=== PATIENT | female | born 1985 | race African-American/Black ===

== ENCOUNTER 2020-10-03 00:24 | Emergency (ER) | payer SELFPAY ==
[2020-10-03 00:54] LABS: Basophils % 1.1 % (0-1.3); Hematocrit 38.1 % (36.0-45.0); Lymphocytes % 36.9 % (15.3-44.8); MPV 9.6 fL (7.6-11.3); RBC Red Blood Cell Count 3.88 M/uL (3.86-4.86)
[2020-10-03 00:57] LABS: Protime INR 0.91
[2020-10-03] MEDS ORDERED: DIPHENHYDRAMINE 50 MG/ML VIAL ONE (01:01)
[2020-10-03] MEDS ORDERED: HALOPERIDOL LACT 5 MG/ML INJ ONE (01:01)
[2020-10-03] MEDS ORDERED: NA CHLORIDE 0.9% 1,000 ML ONE (01:01)
[2020-10-03] MEDS ORDERED: LORazepam 2 MG/ML VIAL ONE (01:01)
[2020-10-03 01:32] LABS: ALT/SGPT 29 U/L (12-78); AST/SGOT 28 U/L (15-37); Albumin 3.5 g/dL (3.4-5.0); Alkaline Phosphatase 116 U/L (45-117); BUN Blood Urea Nitrogen 10 mg/dL (7-18); Bicarbonate 22 mmol/L (21-32); Bilirubin Direct < 0.1 mg/dL (0-0.2); Bilirubin Total 0.2 mg/dL (0.2-1.0); Creatine Phosphokinase 252 U/L (26-192); Glucose Level 163 mg/dL (74-106); Potassium 3.6 mmol/L (3.5-5.1); Protein, Total 7.2 g/dL (6.4-8.2); Sodium Level 140 mmol/L (136-145); Troponin (Emerg Dept Use Only) < 0.02 ng/mL (0.0-0.045)
[2020-10-03 01:43] LABS: Urine Blood TRACE (NEG); Urine Glucose NEGATIVE (NEG); Urine Protein 1+ (NEG)
[2020-10-03 01:48] LABS: Barbiturates NEGATIVE (NEGATIVE); Benzodiazepines NEGATIVE (NEGATIVE); Cocaine NEGATIVE (NEGATIVE); METHAMPHETAM NEGATIVE (NEGATIVE); Methadone NEGATIVE (NEGATIVE); Opiates NEGATIVE (NEGATIVE); Phencyclidine NEGATIVE (NEGATIVE); THC Cannibis POSITIVE (NEGATIVE)
--- NOTE | 2020-10-03 06:03 | ER ---
Nurse's Notes [facility] Name: Laly Guajardo Age: 34 yrs Sex: Female : 1985 Arrival Date: 10/03/2020 Time: 00:20 Bed 3 Private MD: Diagnosis: Altered Metal Status-Resolved;Marijuana Abuse;UTI Presentation: 10/03 00:20 Chief complaint: Chief complaint: EMS states: she was at home when she started to be mg2 combative. given ketamine 250 mgx2 IM enroute. 00:20 Coronavirus screen: Client denies travel out of the [place] in the last 14 days. Ebola mg2 Screen: No symptoms or risks identified at this time. 00:20 Method Of Arrival: EMS: [facility] mg2 01:03 Initial Sepsis Screen: Does the patient meet any 2 criteria? No. Patient's initial mg2 sepsis screen is negative. Does the patient have a suspected source of infection? No. Patient's initial sepsis screen is negative. Risk Assessment: Do you want to hurt yourself or someone else? Patient reports no desire to harm self or others. Onset of symptoms was October 03, 2020. 01:03 Acuity: TYRA 2 mg2 Historical: - Allergies: 02:22 PENICILLINS; lp1 - Home Meds: 01:03 Unable to obtain [Active]; mg2 - PMHx: 01:03 Unable to obtain; mg2 - PSHx: 01:03 Unable to obtain; mg2 - Immunization history:: Flu vaccine status is unknown. - Social history:: Smoking status: unknown. Screenin:05 Abuse screen: Denies threats or abuse. Denies injuries from another. Nutritional mg2 screening: No deficits noted. Tuberculosis screening: No symptoms or risk factors identified. Fall Risk Secondary diagnosis (15 points) combative. IV access (20 points). Assessment: 00:35 Reassessment: applied four point restraint to patient,. still combative. provider mg2 informed and orders made. 01:30 Reassessment: Patient awake, oriented to time and place; Nurse and tech with patient to lp1 transport to [address]; cooperative at this time; Patient states "I want to go home", "What happened to me?". 01:40 General: Appears in no apparent distress. Behavior is cooperative. Pain: Complains of lp1 pain in dorsal aspect of proximal phalanx of left ring finger. Neuro: Level of Consciousness is awake, alert, obeys commands, Oriented to person, place, time, situation. Cardiovascular: Patient's skin is warm and dry. Respiratory: Airway is patent Trachea midline Respiratory effort is even, Respiratory pattern is regular, Breath sounds are clear bilaterally. GI: Abdomen is obese. : No deficits noted. EENT: No deficits noted. Derm: abrasions to left palmar aspect of hand. Musculoskeletal: Range of motion: intact in all extremities. 02:00 Reassessment: Patient appears in no apparent distress at this time. Patient noted to lp1 have swelling to left ring finger, gold ring in place; patient reports pain to site. 02:30 Reassessment: patient resting, eyes closed, respirations even, unlabored. lp1 04:06 Reassessment: Patient resting, eyes closed, respirations even; During routine vitals, lp1 patient states "I want to go home", patient informed of significant other, Ha, went home; Patient back to sleep, no further interventions needed. 05:56 Reassessment: Verbal order for Cipro [address] Shipley. lp1 05:57 Reassessment: Called patient's significant other, Ha at [phone]; Will come to 1 burr picker patient for discharge. 06:30 Reassessment: Patient appears in no apparent distress at this time. Patient woken up at lp1 this time, alert and oriented x3, reports smoking synthetic marijuana; complaint of finger swelling from rings to left ring finger and right ring finger; Dr. Shipley at bedside to use ring cutter; rings removed, skin intact to sites. 06:45 Reassessment: Patient's significant other, Ha at bedside for ride home; Patient able lp1 to ambulate independently, steady gait noted. Vital Signs: 00:20 BP 163 / 101; Pulse 120; Resp 20; Pulse Ox 100% on Non-rebreather mask; mg2 01:15 BP 142 / 83; Pulse 106; Resp 20; Pulse Ox 98% on 2 lpm NC; Weight 99.79 kg; lp1 01:45 BP 130 / 84; Pulse 100; Resp 18; Pulse Ox 94% on R/A; lp1 02:00 BP 139 / 82; Pulse 99; Resp 21; Pulse Ox 95% on R/A; lp1 04:00 BP 135 / 84; Pulse 86; Resp 21; Pulse Ox 95% on R/A; lp1 05:00 BP 132 / 81; Pulse 86; Resp 18; Temp 97.2(TE); Pulse Ox 99% on R/A; lp1 06:00 BP 111 / 89; Pulse 88; Resp 16; Pulse Ox 97% on R/A; lp1 ED Course: 00:20 Patient arrived in ED. sg 00:22 Emir Shipley MD is Attending Physician. 7 00:30 Inserted saline lock: 20 gauge in left forearm, using aseptic technique. by Bentley, ED mg2 TEch. 00:35 Inserted saline lock: 20 gauge in right hand, using aseptic technique. mg2 01:03 Triage completed. mg2 01:03 No provider procedures requiring assistance completed. mg2 01:05 Patient has correct armband on for positive identification. Placed in gown. Side rails mg2 up X2. 01:05 Arm band placed on. mg2 01:12 Urine Drug Screen Sent. ds4 01:44 Chest Single View XRAY In Process Unspecified. EDMS 01:51 Loraine Rajan, RN is Primary Nurse. lp1 01:58 CT Head Brain wo Cont In Process Unspecified. EDMS 06:35 IV discontinued, No redness/swelling at site. Pressure dressing applied. lp1 Restraints: 00:30 Violent/Self Destructive Restraint: Order: obtained. Initiated October 03, 2020 at lp1 00:30 Staff present during the Initiation of Restraint: Loraine Rajan RN; Sina Clark RN, Bentley, cloth cutter; Dr. Shipley. Observed actions/behavior: destructive, confusion/disorientation, difficulty remembering or follow instructions, impaired decision making, repeated attempts to get up from bed/chair without assistance. unable to follow instructions, Less restrictive alternatives attempted: decreased environmental stimuli, 1:1 patient care, placed near Nurse station, reoriented to location, covered lines/tubes, Alternative interventions: Ineffective. Clinical justification for use: Violent/self destructing behavior impacts therapeutic environment. Poses a serious danger to physical safety of self \\T\\ others. Monitoring: Mental status: confused. Cognition: poor judgement, poor attention/concentration, unable to follow commands, Circulation: Within defined parameters (based on Cardiovascular assessment). Skin integrity: Within defined parameters (based on Integumentary assessment) Restraint status: Side rails up x 4 Started. Soft wrist restraint (Right) Soft wrist restraint (Left) Soft ankle restraint (Right) Soft ankle restraint (Left). 00:45 Violent/Self Destructive Restraint: Observed actions/behavior: lp1 confusion/disorientation, difficulty remembering or follow instructions, impaired decision making, repeated attempts to get up from bed/chair without assistance. Monitoring: Mental status: confused. Cognition: poor judgement, poor attention/concentration, unable to follow commands, Circulation: Within defined parameters (based on Cardiovascular assessment). Skin integrity: Within defined parameters (based on Integumentary assessment) Restraint status: Soft wrist restraint (Right) Continued. Soft wrist restraint (Left) Continued. Soft ankle restraint (Right) Continued. Soft ankle restraint (Left) Continued. 01:00 Violent/Self Destructive Restraint: Monitoring: Mental status: confused. Cognition: lp1 poor judgement, poor attention/concentration, unable to follow commands, Circulation: Within defined parameters (based on Cardiovascular assessment). Skin integrity: Within defined parameters (based on Integumentary assessment) Restraint status: Soft wrist restraint (Right) Soft wrist restraint (Left) Soft ankle restraint (Right) Soft ankle restraint (Left). 01:15 Violent/Self Destructive Restraint: Observed actions/behavior: lp1 confusion/disorientation, difficulty remembering or follow instructions, impaired decision making, repeated attempts to get up from bed/chair without assistance. unable to follow instructions, Monitoring: Mental status: confused. Cognition: poor judgement, poor attention/concentration, unable to follow commands, Circulation: Within defined parameters (based on Cardiovascular assessment). Skin integrity: Within defined parameters (based on Integumentary assessment) Restraint status: Soft wrist restraint (Right) Soft wrist restraint (Left) Soft ankle restraint (Right) Soft ankle restraint (Left). 01:30 Violent/Self Destructive Restraint: Less restrictive alternatives attempted: decreased lp1 environmental stimuli, placed near Nurse station, reoriented to location, covered lines/tubes, eliminated unnecessary lines/tubes, Alternative interventions: Effective. Restraint status: Soft wrist restraint (Right) Discontinued. Soft wrist restraint (Left) Discontinued. Soft ankle restraint (Right) Discontinued. Soft ankle restraint (Left) Discontinued. Readiness for Discontinue: Release criteria met. No longer exhibiting violent or self destructive behavior. Alt interventions effective. Administered Medications: 00:59 Drug: Ativan 2 mg Route: IM; Site: right deltoid; mg2 02:00 Follow up: Response: No adverse reaction lp1 01:00 Drug: NS 0.9% 1000 ml Route: IV; Rate: 1000 ml; Site: left forearm; mg2 02:30 Follow up: IV Status: Completed infusion; IV Intake: 1000ml lp1 01:00 Drug: HALdol (as decanoate) 5 mg Route: IM; Site: left deltoid; mg2 02:00 Follow up: Response: No adverse reaction lp1 01:00 Drug: Benadryl 50 mg Route: IM; Site: right deltoid; mg2 05:54 Follow up: Response: No adverse reaction lp1 06:47 Drug: Cipro 500 mg Route: PO; mg2 06:47 Follow up: Response: No adverse reaction; Medication administered at discharge. mg2 Intake: 02:30 IV: 1000ml; Total: 1000ml. lp1 Outcome: 06:02 Discharge ordered by . [facility] 06:50 Discharged to home ambulatory, with significant other. lp1 06:50 Condition: good 06:50 Discharge instructions given to patient, Instructed on discharge instructions, follow up and referral plans. medication usage, Demonstrated understanding of instructions, follow-up care, medications, Prescriptions given X 1. 06:56 Patient left the ED. lp1 Signatures: Dispatcher [employer] EDMS Donnie Rogers RN RN Loraine Rajan RN RN 1 Bentley Ambrosio 4 Sina Clark RN RN mg2 Emir Shipley MD MD 7 Corrections: (The following items were deleted from the chart) 01:03 01:00 Chief complaint: mg2 mg2 01:56 01:30 Reassessment: Patient awake, oriented to time and place; Nurse and tech with lp1 patient to transport to ID lp1 02:21 01:15 BP 142 / 83; Pulse 106bpm; Resp 20bpm; Pulse Ox 98% 2 lpm Nasal Cannula; lp1 lp1 02:27 02:23 Violent/Self Destructive Restraint: Order: obtained. Initiated October 03, 2020 lp1 at 00:30 Staff present during the Initiation of Restraint: Loraine Rajan RN; Sina Clark RN, Bentley, cloth cutter; Dr. Shipley. Observed actions/behavior: lp1 07:13 05:00 BP 132 / 81; Pulse 86bpm; Resp 18bpm; Pulse Ox 99% RA; lp1 lp1
--- NOTE | 2020-10-03 06:03 | EDPHYS ---
Physician Documentation [facility] Name: Laly Guajardo Age: 34 yrs Sex: Female : 1985 Arrival Date: 10/03/2020 Time: 00:20 Bed 3 Private MD: ED Physician Emir Shipley HPI: 10/03 01:29 This 34 yrs old Black Female presents to ER via EMS with complaints of Drug Abuse. 7 01:29 The patient presents with agitation, combative. Onset: The symptoms/episode mh7 began/occurred today. Possible causes: drug use, possibly synthetic marijuana. Associated signs and symptoms: Pertinent positives: agitation, combativeness. Current symptoms: In the emergency department the patient's symptoms have improved, moderately. Per EMS family called due to patient being agitated and combative. They reported that she has a history of drug abuse with synthetic marijuana. EMS gave patient Ketamine IM.. Historical: - Allergies: 02:22 PENICILLINS; lp1 - Home Meds: :03 Unable to obtain [Active]; mg2 - PMHx: :03 Unable to obtain; mg2 - PSHx: 01:03 Unable to obtain; mg2 - Immunization history:: Flu vaccine status is unknown. - Social history:: Smoking status: unknown. ROS: :29 Unable to obtain ROS due to altered mental status. mh7 Exam: 01:29 Head/Face: Normocephalic, atraumatic. Eyes: Pupils equal round and reactive to light, mh7 extra-ocular motions intact. Lids and lashes normal. Conjunctiva and sclera are non-icteric and not injected. Cornea within normal limits. Periorbital areas with no swelling, redness, or edema. Neck: Trachea midline, no thyromegaly or masses palpated, and no cervical lymphadenopathy. Supple, full range of motion without nuchal rigidity, or vertebral point tenderness. No Meningismus. Chest/axilla: Normal chest wall appearance and motion. Nontender with no deformity. No lesions are appreciated. 01:29 Respiratory: Lungs have equal breath sounds bilaterally, clear to auscultation and percussion. No rales, rhonchi or wheezes noted. No increased work of breathing, no retractions or nasal flaring. Abdomen/GI: Soft, non-tender, with normal bowel sounds. No distension or tympany. No guarding or rebound. No evidence of tenderness throughout. Back: No spinal tenderness. No costovertebral tenderness. Full range of motion. Skin: Warm, dry with normal turgor. Normal color with no rashes, no lesions, and no evidence of cellulitis. MS/ Extremity: Pulses equal, no cyanosis. Neurovascular intact. Full, normal range of motion. 01:29 Constitutional: The patient appears in no acute distress, alert, agitated, restless. 01:29 Cardiovascular: Rate: tachycardic, Rhythm: regular, Pulses: no pulse deficits are appreciated, Heart sounds: normal, normal S1and S2, Edema: is not appreciated, JVD: is not appreciated. 01:29 Neuro: Orientation: unable to test, the patient is medicated, Mentation: unable to test, the patient is medicated, Memory: unable to test, the patient is medicated, Cranial nerves: unable to test, the patient is medicated, Cerebellar function: unable to test, the patient is medicated, Motor: moves all fours, Sensation: unable to test, the patient is medicated, Gait: not tested. Deep tendon reflexes are normal, Babinski testing is normal, seizure activity, is not displayed by the patient, Abnormal movements: there are no abnormal movements. Vital Signs: 00:20 BP 163 / 101; Pulse 120; Resp 20; Pulse Ox 100% on Non-rebreather mask; mg2 01:15 BP 142 / 83; Pulse 106; Resp 20; Pulse Ox 98% on 2 lpm NC; Weight 99.79 kg; lp1 01:45 BP 130 / 84; Pulse 100; Resp 18; Pulse Ox 94% on R/A; lp1 02:00 BP 139 / 82; Pulse 99; Resp 21; Pulse Ox 95% on R/A; lp1 04:00 BP 135 / 84; Pulse 86; Resp 21; Pulse Ox 95% on R/A; lp1 05:00 BP 132 / 81; Pulse 86; Resp 18; Temp 97.2(TE); Pulse Ox 99% on R/A; lp1 06:00 BP 111 / 89; Pulse 88; Resp 16; Pulse Ox 97% on R/A; lp1 MDM: 05:58 Differential Diagnosis: electrolyte abnormality, alcohol intoxication, overdose, UTI, mh7 volume depletion, Substance Abuse. Data reviewed: vital signs, nurses notes, EMS record, lab test result(s), cardiac enzymes, CBC, drug level(s), electrolytes, urinalysis, urine drug screen, UPT: EKG, radiologic studies, CT scan, plain films. Data interpreted: Pulse oximetry: on room air is 97 %. Interpretation: normal. Counseling: I had a detailed discussion with the patient and/or guardian regarding: the historical points, exam findings, and any diagnostic results supporting the discharge/admit diagnosis, lab results, radiology results, the need for outpatient follow up, to return to the emergency department if symptoms worsen or persist or if there are any questions or concerns that arise at home. Response to treatment: the patient's symptoms have resolved after treatment, the patient's blood pressure is in an acceptable range, mental status has returned to baseline, the patient no longer shows bradycardia, the patient is not short of breath, the patient is not tachycardic, the patient's pain is gone, the patient's temperature has normalized. 06:02 Patient medically screened. mh7 10/03 00:35 Order name: Acetaminophen; Complete Time: 02:02 mg2 10/03 00:35 Order name: Basic Metabolic Panel; Complete Time: 02:02 mg2 10/03 00:35 Order name: CBC with Diff; Complete Time: 02:02 mg2 10/03 00:35 Order name: ETOH Level; Complete Time: 02:02 mg2 10/03 00:35 Order name: Hepatic Function; Complete Time: 02:02 mg2 10/03 00:35 Order name: PT-INR; Complete Time: 02:02 mg2 10/03 00:35 Order name: Ptt, Activated; Complete Time: 02:02 mg2 10/03 00:35 Order name: Salicylate; Complete Time: 02:02 mg2 10/03 00:35 Order name: Urine Drug Screen; Complete Time: 02:02 mg2 10/03 00:58 Order name: Creatine Phosphokinase; Complete Time: 02:02 EDMS 10/03 00:58 Order name: Troponin (Emerg Dept Use Only); Complete Time: 02:02 EDMS 10/03 01:10 Order name: Urine Dipstick--Ancillary (enter results); Complete Time: 02:02 ds4 10/03 00:35 Order name: EKG; Complete Time: 00:35 mg2 10/03 00:35 Order name: EKG - Nurse/Tech; Complete Time: 01:00 [facility] [place] 10/03 00:35 Order name: IV Saline Lock; Complete Time: 01:00 [facility] [place] 10/03 00:35 Order name: Labs collected and sent; Complete Time: 01:00 [facility] [place] 10/03 00:35 Order name: Urine Dipstick-Ancillary (obtain specimen); Complete Time: 01:00 [facility] [place] 10/03 00:44 Order name: Chest Single View XRAY [facility] 10/03 00:44 Order name: Urine Test (obtain specimen); Complete Time: 01:00 [facility] 10/03 00:44 Order name: CT Head Brain wo Cont [facility] 10/03 01:06 Order name: Restraint:Violent/Self Destructive (Adult:18yo or >); Complete Time: 01:06 [facility] [place] 10/03 01:11 Order name: Urine --Ancillary (enter results); Complete Time: 02:02 ds4 Administered Medications: 00:59 Drug: Ativan 2 mg Route: IM; Site: right deltoid; mg2 02:00 Follow up: Response: No adverse reaction lp1 01:00 Drug: NS 0.9% 1000 ml Route: IV; Rate: 1000 ml; Site: left forearm; mg2 02:30 Follow up: IV Status: Completed infusion; IV Intake: 1000ml lp1 01:00 Drug: HALdol (as decanoate) 5 mg Route: IM; Site: left deltoid; mg2 02:00 Follow up: Response: No adverse reaction lp1 01:00 Drug: Benadryl 50 mg Route: IM; Site: right deltoid; mg2 05:54 Follow up: Response: No adverse reaction lp1 06:47 Drug: Cipro 500 mg Route: PO; mg2 06:47 Follow up: Response: No adverse reaction; Medication administered at discharge. mg2 Disposition: 10/03/20 06:02 Discharged to Home. Impression: Altered Metal Status-Resolved, Marijuana Abuse, UTI. - Condition is Stable. - Discharge Instructions: Cannabis Use Disorder, Substance Use Disorder, Urinary Tract Infection, Adult, [id number]. - Prescriptions for Cipro 500 mg Oral Tablet - take 1 tablet by ORAL route every 12 hours for 7 days; 14 tablet. - Medication Reconciliation Form, Thank You Letter, Antibiotic Education, Prescription Opioid Use form. - Follow up: Private Physician; When: 1 - 2 days; Reason: Worsening of condition, Recheck today's complaints, Continuance of care, Re-evaluation by your physician. - Problem is an acute exacerbation. - Symptoms have improved. Signatures: Dispatcher [employer] EDWY Loraine Rajan RN RN lp1 Sina Clark RN RN mg2 Emir Shipley MD MD mh7 Corrections: (The following items were deleted from the chart) 00:58 00:53 TROPONIN (EMERG DEPT USE ONLY)+C.LAB.BRZ ordered. EDWY EDWY 00:58 00:53 CREATINE PHOSPHOKINASE+C.LAB.BRZ ordered. [facility] EDWY 06:56 06:02 10/03/2020 06:02 Discharged to Home. Impression: Altered Metal Status-Resolved; lp1 Marijuana Abuse; UTI. Condition is Stable. Forms are Medication Reconciliation Form, Thank You Letter, Antibiotic Education, Prescription Opioid Use. Follow up: Private Physician; When: 1 - 2 days; Reason: Worsening of condition, Recheck today's complaints, Continuance of care, Re-evaluation by your physician. Problem is an acute exacerbation. Symptoms have improved. mh7
[2020-10-03] MEDS ORDERED: CIPROFLOXACIN HCL 500 MG TAB ONE (06:15)
[2020-10-03 07:24] VITALS: BP 111/89; O2SAT 97
--- NOTE | 2020-10-03 10:52 | RAD REPORT ---
EXAM DESCRIPTION: CT - Head Brain Wo Cont - 10/03/2020 3:39 am EXAM DESCRIPTION: CT of the head without contrast CLINICAL HISTORY: AMS COMPARISON: None available TECHNIQUE: Axial CT of the head obtained from the skull apex to the skull base without contrast. FINDINGS: No acute intracranial hemorrhage identified. No mass, mass effect, shift of the midline, a bnormal extra-axial fluid collection or CT evidence of acute ischemic change identified. The ventricu lar system is unremarkable. No acute abnormalities of the supratentorial white matter, basal gangli a, cerebellum, or brainstem. The visualized paranasal sinuses and the mastoid air cells are relatively well aerated. No skull fr acture identified. Visualized orbits and globes are unremarkable. IMPRESSION: 1. No acute intracranial abnormality identified. This exam was performed according to our departmental dose-optimization program, which includes autom ated exposure control, adjustment of the mA and/or kV according to patient size and/or use of iterati ve reconstruction technique. Electronically signed by: Yuval Vásquez 10/03/2020 2:04 AM CHANNEL CEMENTER INSOLE MACHINE Due to temporary technical issues with the PACS/Fluency reporting system, reports are being signed by the in house radiologist without review as a courtesy to ensure prompt reporting. The interpreting r adiologist is fully responsible for the content of the report.
--- NOTE | 2020-10-03 11:18 | RAD REPORT ---
EXAM DESCRIPTION: RAD - Chest Single View - 10/03/2020 1:44 am CLINICAL HISTORY: AMS COMPARISON: None. FINDINGS: Single frontal radiograph view of the chest. Cardiomediastinal silhouette: Normal size and contour. Lungs: No consolidation, pneumothorax, or pleural effusion. Low lung volumes. Bones: No acute osseous abnormality. Leads overlie the chest. Upper abdomen: No abnormality identified. IMPRESSION: 1. No definite acute pneumonic process identified. Low lung volumes. Electronically signed by: Yuval Vásquez 10/03/2020 2:56 AM CRAYON PAINTER Due to temporary technical issues with the PACS/Fluency reporting system, reports are being signed by the in house radiologist without review as a courtesy to ensure prompt reporting. The interpreting r adiologist is fully responsible for the content of the report.
== END 2020-10-03 06:56 | disposition home or self-care (01) ==
LOC: ER 00:24
DX: F12.10 Cannabis abuse, uncomplicated (principal); N39.0 Urinary tract infection, site not specified; Z88.0 Allergy status to penicillin
CPT/HCPCS: 36415; 70450; 71045; 80048; 80076; 80307; 80320; 80329; 81003; 81025; 82550; 84484; 85025; 85610; 85730; 96360; 96372; 99284; J1200; J1630; J7030

== ENCOUNTER 2020-10-09 18:37 | Emergency (ER) | payer SELFPAY ==
[2020-10-09 19:20] LABS: Absolute Lymphocytes (CBC) 3.2 K/uL (0.7-4.9); Basophils % 1.8 % (0-1.3); Hematocrit 36.4 % (36.0-45.0); Lymphocytes % 35.1 % (15.3-44.8); MPV 9.7 fL (7.6-11.3); RBC Red Blood Cell Count 3.75 M/uL (3.86-4.86)
[2020-10-09 19:21] LABS: Protime INR 0.97
[2020-10-09] MEDS ORDERED: METHYLPREDNISOLONE 125 MG INJ ONE (19:29)
[2020-10-09] MEDS ORDERED: ALBUTEROL 2.5 MG/3 ML NEB SOL ONE (19:30)
[2020-10-09 19:38] LABS: ALT/SGPT 32 U/L (12-78); AST/SGOT 20 U/L (15-37); Albumin 3.8 g/dL (3.4-5.0); Alkaline Phosphatase 104 U/L (45-117); BUN Blood Urea Nitrogen 16 mg/dL (7-18); Bicarbonate 25 mmol/L (21-32); Bilirubin Direct 0.1 mg/dL (0-0.2); Bilirubin Total 0.3 mg/dL (0.2-1.0); Glucose Level 80 mg/dL (74-106); Magnesium 1.9 mg/dL (1.8-2.4); NT PRO-BNP 69 pg/mL (<125); Potassium 3.7 mmol/L (3.5-5.1); Protein, Total 7.3 g/dL (6.4-8.2); Sodium Level 140 mmol/L (136-145); Troponin (Emerg Dept Use Only) < 0.02 ng/mL (0.0-0.045)
[2020-10-09] MEDS ORDERED: DIPHENHYDRAMINE 50 MG/ML VIAL ONE (20:18)
[2020-10-09] MEDS ORDERED: KETOROLAC 30 MG/ML INJ ONE (20:19)
--- NOTE | 2020-10-09 20:28 | ER ---
Nurse's Notes [facility] Name: Laly Guajardo Age: 34 yrs Sex: Female : 1985 Arrival Date: 10/09/2020 Time: 18:40 Bed 19 Private MD: Diagnosis: Asthma;Insect bite (nonvenomous) of lower back and pelvis-buttocks Presentation: 10/09 18:48 Chief complaint: Patient states: noticed about 2 days ago that she has a "bump" on her sv butt and today she had a sudden onset of midsternal chest pain, SOB, and dizziness. Coronavirus screen: Client denies travel out of the [place] in the last 14 days. Client presents with at least one sign or symptom that may indicate coronavirus-19. Standard/surgical mask placed on the client. Provider contacted for isolation considerations. Ebola Screen: No symptoms or risks identified at this time. Initial Sepsis Screen: Does the patient meet any 2 criteria? RR > 20 per min. No. Patient's initial sepsis screen is negative. Does the patient have a suspected source of infection? No. Patient's initial sepsis screen is negative. Risk Assessment: Do you want to hurt yourself or someone else? Patient reports no desire to harm self or others. Onset of symptoms was October 07, 2020. 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 - Social history:: Smoking status: Patient reports the use of cigarette tobacco products, smokes one-half pack cigarettes per day. Screenin:00 Abuse screen: Denies threats or abuse. Nutritional screening: No deficits noted. jb4 Tuberculosis screening: No symptoms or risk factors identified. Fall Risk None identified. Assessment: 19:00 General: Appears in no apparent distress. uncomfortable, Behavior is calm, cooperative, jb4 appropriate for age. Pain: Complains of pain in chest Pain does not radiate. Pain currently is 8 out of 10 on a pain scale. Quality of pain is described as pressure. Neuro: Level of Consciousness is awake, alert, obeys commands, Oriented to person, place, time, situation. Cardiovascular: Patient's skin is warm and dry. Respiratory: Reports shortness of breath at rest Airway is patent Respiratory effort is even, unlabored, Respiratory pattern is regular, symmetrical, Breath sounds are clear bilaterally. GI: No signs and/or symptoms were reported involving the gastrointestinal system. : No signs and/or symptoms were reported regarding the genitourinary system. EENT: No signs and/or symptoms were reported regarding the EENT system. Derm: Skin is intact, Skin is dry, Skin is normal, Skin temperature is warm. Musculoskeletal: Circulation, motion, and sensation intact. Range of motion: intact in all extremities. 20:00 Reassessment: Patient appears in no apparent distress at this time. Patient and/or jb4 family updated on plan of care and expected duration. Pain level reassessed. Patient is alert, oriented x 3, equal unlabored respirations, skin warm/dry/pink. Pt denies chest pain. Patient states feeling better. 20:39 Reassessment: Patient appears in no apparent distress at this time. Patient and/or jb4 family updated on plan of care and expected duration. Pain level reassessed. Patient is alert, oriented x 3, equal unlabored respirations, skin warm/dry/pink. Vital Signs: 18:48 BP 153 / 98; Pulse 78; Resp 22; Temp 97.7; Pulse Ox 100% ; Weight 79.38 kg; Height 5 sv ft. 2 in. (157.48 cm); 20:00 BP 139 / 73; Pulse 72; Resp 18; Pulse Ox 100% on R/A; jb4 18:48 Body Mass Index 32.01 (79.38 kg, 157.48 cm) sv ED Course: 18:40 Patient arrived in ED. ds1 18:45 Sandeep Antunez NP is PHCP. pm1 18:45 Gareth Boone MD is Attending Physician. pm1 18:47 Sadie Hurtado RN is Primary Nurse. ll1 18:47 Arm band placed on Patient placed in an exam room, on a stretcher. ll1 18:50 Triage completed. sv 19:00 Patient has correct armband on for positive identification. Bed in low position. Call jb4 light in reach. Side rails up X 1. Pulse ox on. NIBP on. 19:00 Initial lab(s) drawn, by me, sent to lab. Inserted saline lock: 18 gauge in right jb4 antecubital area, using aseptic technique. Blood collected. 19:30 COVID swab sent to lab. Flu and/or RSV swab sent to lab. Strep swab sent to lab. jb4 20:38 XRAY Chest (1 view) In Process Unspecified. EDMS 20:40 No provider procedures requiring assistance completed. IV discontinued, intact, jb4 bleeding controlled, No redness/swelling at site. Pressure dressing applied. Administered Medications: 19:35 Drug: Albuterol 2.5 mg Route: Inhalation; jb4 20:00 Follow up: Response: No adverse reaction; Marked relief of symptoms jb4 19:35 Drug: SOLU-Medrol 125 mg Route: IVP; Site: right antecubital; jb4 20:00 Follow up: Response: No adverse reaction jb4 20:10 Drug: TORadol 30 mg Route: IVP; Site: right antecubital; jb4 20:30 Follow up: Response: No adverse reaction; Pain is decreased jb4 20:11 Drug: Benadryl 25 mg Route: IVP; Site: right antecubital; jb4 20:30 Follow up: Response: No adverse reaction; Pain is decreased jb4 20:30 CANCELLED (Physician Discretion): predniSONE 60 mg PO once pm1 Outcome: 20:28 Discharge ordered by MD. pm1 20:40 Discharged to home via wheelchair, with family. jb4 20:40 Condition: stable 20:40 Discharge instructions given to patient, Instructed on discharge instructions, follow up and referral plans. medication usage, Demonstrated understanding of instructions, follow-up care, medications, Prescriptions given X 3. 20:41 Patient left the ED. mw2 Addendum: 10/11/2020 16:38 Addendum: COVID-19 Result: Negative result given to RN to notify pt. Notified pt of i w negative COVID 19 swab results. Pt advised that even with a negative test result they should remain in isolation until symptom free for 3 days without medication. Pt also advised to return to the ED for worsening symptoms. Signatures: Dispatcher [employer] EDGA Josey Oneal RN RN sv Sanford, Demi ds1 Ne Tapia RN RN iw Marinas, Patrick, HAT BLOCKING MACHINE OPERATOR HAT BLOCKING MACHINE OPERATOR pm1 Dima Mcfarlane, RN RN jb4 [place] mw2 Sadie Hurtado, RN RN ll1
--- NOTE | 2020-10-09 20:28 | EDPHYS ---
Physician Documentation [facility] [place] Name: Laly Guajardo Age: 34 yrs Sex: Female : 1985 Arrival Date: 10/09/2020 Time: 18:40 Bed 19 Private MD: ED Physician Gareth Boone HPI: 10/09 19:23 This 34 yrs old Black Female presents to ER via Ambulatory with complaints of Insect pm1 Bite, Shortness Of Breath, Finger Pain. 19:23 The patient has shortness of breath at rest. pm1 19:23 Onset: The symptoms/episode began/occurred today. Duration: The symptoms are pm1 continuous. The patient's shortness of breath is aggravated by nothing, is alleviated by nothing. Associated signs and symptoms: Pertinent positives: non-productive cough, Pertinent negatives: chest pain, fever, nausea, vomiting. Severity of symptoms: in the emergency department the symptoms are worse. The patient has not experienced similar symptoms in the past. Patient is also complaining of insect bite to her left upper buttocks and abrasion to left thumb from a mash filter cloth changer. 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 - Social history:: Smoking status: Patient reports the use of cigarette tobacco products, smokes one-half pack cigarettes per day. ROS: 19:23 Constitutional: Negative for fever, chills, and weight loss, Eyes: Negative for injury, pm1 pain, redness, and discharge. 19:23 Abdomen/GI: Negative for abdominal pain, nausea, vomiting, diarrhea, and constipation, Back: Negative for injury and pain, MS/Extremity: Negative for injury and deformity. 19:23 Cardiovascular: Positive for chest pain, Negative for edema, orthopnea, palpitations. 19:23 Respiratory: Positive for cough, shortness of breath, wheezing, Negative for sputum production. 19:23 Skin: Positive for abrasion to left thumb and insect bite to left buttocks. Exam: 19:23 Constitutional: This is a well developed, well nourished patient who is awake, alert, pm1 and in no acute distress. Head/Face: Normocephalic, atraumatic. 19:23 Neck: Trachea midline, no thyromegaly or masses palpated, and no cervical lymphadenopathy. Supple, full range of motion without nuchal rigidity, or vertebral point tenderness. No Meningismus. Chest/axilla: Normal chest wall appearance and motion. Nontender with no deformity. No lesions are appreciated. Cardiovascular: Regular rate and rhythm with a normal S1 and S2. No gallops, murmurs, or rubs. Normal PMI, no JVD. No pulse deficits. Back: No spinal tenderness. No costovertebral tenderness. Full range of motion. 19:23 Respiratory: the patient does not display signs of respiratory distress, Breath sounds: wheezing: that is mild, is heard diffusely. 19:23 Skin: Appearance: normal except for affected area, abscess, not appreciated, cellulitis, is not appreciated, injury, abrasion(s), very small abrasion noted, of the palmar aspect of proximal phalanx of left thumb, sub centimeter scab to left upper buttocks without any indication of abscess or cellulitis. Vital Signs: 18:48 BP 153 / 98; Pulse 78; Resp 22; Temp 97.7; Pulse Ox 100% ; Weight 79.38 kg; Height 5 sv ft. 2 in. (157.48 cm); 20:00 BP 139 / 73; Pulse 72; Resp 18; Pulse Ox 100% on R/A; jb4 18:48 Body Mass Index 32.01 (79.38 kg, 157.48 cm) sv MDM: 18:49 Patient medically screened. pm1 20:23 Data reviewed: vital signs. Data interpreted: Pulse oximetry: on room air is 100 %. pm1 Interpretation: normal. 20:27 Counseling: I had a detailed discussion with the patient and/or guardian regarding: the pm1 historical points, exam findings, and any diagnostic results supporting the discharge/admit diagnosis, lab results, radiology results, the need for outpatient follow up, to return to the emergency department if symptoms worsen or persist or if there are any questions or concerns that arise at home. 10/09 18:56 Order name: NT PRO-BNP; Complete Time: 19:42 pm1 10/09 18:56 Order name: Basic Metabolic Panel; Complete Time: 19:42 pm1 10/09 18:56 Order name: CBC with Diff; Complete Time: 19:35 pm1 10/09 18:56 Order name: LFT's; Complete Time: 19:42 pm1 10/09 18:56 Order name: Magnesium; Complete Time: 19:42 pm1 10/09 18:56 Order name: PT-INR; Complete Time: 19:35 pm1 10/09 18:56 Order name: Troponin (emerg Dept Use Only); Complete Time: 19:42 pm1 10/09 18:56 Order name: XRAY Chest (1 view) pm1 10/09 19:15 Order name: Flu; Complete Time: 20:23 pm1 10/09 19:15 Order name: Strep; Complete Time: 20:03 pm1 10/09 19:15 Order name: COVID-19 pm1 10/09 19:53 Order name: Throat Culture EDPR 10/09 18:56 Order name: EKG; Complete Time: 18:57 pm1 10/09 18:56 Order name: Cardiac monitoring; Complete Time: 19:12 pm1 10/09 18:56 Order name: EKG - Nurse/Tech; Complete Time: 19:12 pm1 10/09 18:56 Order name: IV Saline Lock; Complete Time: 19:13 pm1 10/09 18:56 Order name: Labs collected and sent; Complete Time: 19:13 pm1 10/09 18:56 Order name: O2 Per Protocol; Complete Time: 19:13 pm1 10/09 18:56 Order name: O2 Sat Monitoring; Complete Time: 19:13 pm1 Administered Medications: 19:35 Drug: Albuterol 2.5 mg Route: Inhalation; jb4 20:00 Follow up: Response: No adverse reaction; Marked relief of symptoms jb4 19:35 Drug: SOLU-Medrol 125 mg Route: IVP; Site: right antecubital; jb4 20:00 Follow up: Response: No adverse reaction jb4 20:10 Drug: TORadol 30 mg Route: IVP; Site: right antecubital; jb4 20:30 Follow up: Response: No adverse reaction; Pain is decreased jb4 20:11 Drug: Benadryl 25 mg Route: IVP; Site: right antecubital; jb4 20:30 Follow up: Response: No adverse reaction; Pain is decreased jb4 20:30 CANCELLED (Physician Discretion): predniSONE 60 mg PO once pm1 Disposition: 10/09/20 20:28 Discharged to Home. Impression: Asthma, Insect bite (nonvenomous) of lower back and pelvis - buttocks. - Condition is Stable. - Discharge Instructions: Asthma, Adult, Insect Bite, Asthma Attack Prevention, Adult. - Prescriptions for Medrol (Carmine) 4 mg Oral Tablets, Dose Pack - take 1 tablet by ORAL route as directed - follow package instructions; 1 packet. Albuterol Sulfate 90 mcg/actuation - inhale 1-2 puff by INHALATION route every 4-6 hours; 1 Inhaler. Bactrim DS 800- 160 mg Oral Tablet - take 1 tablet by ORAL route every 12 hours for 10 days; 20 tablet. - Medication Reconciliation Form, Thank You Letter, Antibiotic Education, Prescription Opioid Use form. - Follow up: Emergency Department; When: As needed; Reason: Worsening of condition. Follow up: Private Physician; When: 2 - 3 days; Reason: Recheck today's complaints, Continuance of care, Re-evaluation by your physician. - Problem is new. - Symptoms have improved. Addendum: 10/15/2020 07:14 Co-signature as Attending Physician, Gareth Boone MD. r n Signatures: Dispatcher [employer] EDJosey Anaya RN Gareth Rand MD MD rn Marinas, Patrick, NP MITOCHONDRIAL DISORDERS COUNSELOR pm1 Dima Mcfarlane RN RN jb4 [place] mw2 Corrections: (The following items were deleted from the chart) 10/09 20:30 20:29 predniSONE 60 mg PO once ordered. pm1 pm1 20:33 20:28 10/09/2020 20:28 Discharged to Home. Impression: Asthma. Condition is Stable. pm1 Forms are Medication Reconciliation Form, Thank You Letter, Antibiotic Education, Prescription Opioid Use. Follow up: Emergency Department; When: As needed; Reason: Worsening of condition. Follow up: Private Physician; When: 2 - 3 days; Reason: Recheck today's complaints, Continuance of care, Re-evaluation by your physician. Problem is new. Symptoms have improved. pm1 20:41 20:33 10/09/2020 20:28 Discharged to Home. Impression: Asthma; Insect bite mw2 (nonvenomous) of lower back and pelvis - buttocks. Condition is Stable. Discharge Instructions: Asthma, Adult, Asthma Attack Prevention, Adult, Insect Bite. Prescriptions for Medrol (Carmine) 4 mg Oral Tablets, Dose Pack - take 1 tablet by ORAL route as directed - follow package instructions; 1 packet, Albuterol Sulfate 90 mcg/actuation - inhale 1-2 puff by INHALATION route every 4-6 hours; 1 Inhaler, Bactrim DS 800-160 mg Oral Tablet - take 1 tablet by ORAL route every 12 hours for 10 days; 20 tablet. and Forms are Medication Reconciliation Form, Thank You Letter, Antibiotic Education, Prescription Opioid Use. Follow up: Emergency Department; When: As needed; Reason: Worsening of condition. Follow up: Private Physician; When: 2 - 3 days; Reason: Recheck today's complaints, Continuance of care, Re-evaluation by your physician. Problem is new. Symptoms have improved. pm1
--- NOTE | 2020-10-09 20:43 | RAD REPORT ---
EXAM DESCRIPTION: RAD - Chest Single View - 10/09/2020 8:38 pm CLINICAL HISTORY: CHEST PAIN Chest pain. COMPARISON: Chest Single View dated 10/03/2020; CHEST PA AND LAT 2 VIEW dated 09/16/2014 FINDINGS: Portable technique limits examination quality. The lungs are grossly clear. The heart is normal in size. No displaced fractures. IMPRESSION: No acute intrathoracic process suspected.
[2020-10-10 01:48] VITALS: TEMP 97.7; O2SAT 100
[2020-10-10 01:50] VITALS: BP 139/73
== END 2020-10-09 20:41 | disposition home or self-care (01) ==
LOC: ER 18:37
DX: J45.909 Unspecified asthma, uncomplicated (principal); Z20.828 Contact with and (suspected) exposure to other viral communicable diseases; S30.860A Insect bite (nonvenomous) of lower back and pelvis, initial encounter; F17.210 Nicotine dependence, cigarettes, uncomplicated; Z88.0 Allergy status to penicillin
CPT/HCPCS: 36415; 71045; 80048; 80076; 83735; 83880; 84484; 85025; 85610; 87070; 87081; 87804; 93005; 96374; 96375; 99284; J1200; J2930; U0002

== ENCOUNTER 2020-10-27 22:29 | Emergency (ER) | payer OTHER, SELFPAY ==
--- OUTSIDE RECORDS SUMMARY | 2020-10-27 22:31 | XMS REPORT | Continuity of Care Document ---
:1985 Author Organization [facility] t Address [address] [place] [address] Care Team Providers Name Role Phone Gale Parks Attending Clinician Missy ADKINS Attending Clinician Doctor Unassigned, Name Attending Clinician Unavailable Luz Maria Harry Attending Clinician Dustin Tapia DO Attending Clinician Problems This patient has no known problems. Allergies, Adverse Reactions, Alerts This patient has no known allergies or adverse reactions. Medications This patient has no known medications. Procedures This patient has no known procedures. Encounters Start End Encounter Admission Attending Care Care Encounter Source Date/Time Date/Time Type Type Clinicians Facility Department ID 2020-10-22 2020-10-22 Emergency CHIKIS Wilson [id number] 16:02:00 20:05:00 Lakhwinder Robin [id number] [place] [id number] [place] [id number] 2019-07-29 2019-07-29 Emergency CHIKIS Louis [id number] 09:50:45 12:45:00 Quinton Robin [id number] [place] [id number] [place] [id number] 2019-07-29 2019-07-29 Orders Doctor ROSE [id number] 00:00:00 00:00:00 Only Unassigned, MOOK [id number] [place] [id number] 2019-07-27 2019-07-27 Telephone Paula [facility] [id number] 00:00:00 00:00:00 Kristina Loera [place] [id number] [facility] [id number] MATERNAL [id number] & CHILD [address] [place] [id number] 2019-07-11 2019-07-12 Emergency [facility] [id number] 23:24:47 01:29:00 Meredith Robin [id number] [place] [id number] [place] [id number] 2019-07-08 2019-07-08 Office [facility] [id number] 15:11:03 16:28:52 Visit Kristina Loera [place] [id number] [facility] [id number] MATERNAL [id number] & CHILD [address] [place] [id number] Results This patient has no known results.
--- OUTSIDE RECORDS SUMMARY | 2020-10-27 22:32 | XMS REPORT | Summary of Care ---
:1985 Author Organization [facility] - [facility] Address [address] [place] [id number] Care Team Providers Name Role Phone June Brown Primary Care Provider Reason for Referral Radiology Services (STAT) Status Reason Specialty Diagnoses / Referred By Referred To Procedures Contact Contact New Request Diagnostic Diagnoses Abdominal pain, generalized Right forearm pain [place], Radiology Procedures XR FOREARM 2 VW RIGHT XR FOREARM 2 VW LEFT [place] F, PRIVATE CHEF [address] [place] [phone] MRI/CAT Scan (STAT) Status Reason Specialty Diagnoses / Referred By Referred To Procedures Contact Contact New Request Diagnostic Diagnoses Abdominal pain, generalized [place], Radiology Procedures CT ABDOMEN PELVIS W CONTRAST [place] F, PRIVATE CHEF [address] [place] [phone] Radiology Services (STAT) Status Reason Specialty Diagnoses / Referred By Referred To Procedures Contact Contact New Request Diagnostic Diagnoses Abdominal pain, generalized [place], Radiology Procedures Chest 1 View [place] F, PRIVATE CHEF [address] [place] [phone] Reason for Visit Reason Comments Abdominal Pain Arm Pain Seizures Auth/Cert Status Reason Specialty Diagnoses / Referred By Referred To Procedures Contact Contact Emergency Medicine [facility] ergency Dept [address] [place] [address] Fax: Encounter Details Date Type Department Care Team Description 10/22/2020 Emergency ADC-Emergency [place], [place] Abdominal pain, generalized (Primary Dx); Department F, PRIVATE CHEF Right forearm pain; [address] [place] [address] Suprapubic abdominal pain; Drive [address] [place] [address] [place], [place] [phone] Allergies Active Allergy Reactions Severity Noted Date Comments Amoxicillin Unknown - See comments 05/10/2018 Hymenoptera Allergenic Extract Shortness of Breath Penicillins Swelling 04/16/2014 Penicillin Rash 05/23/2018 Metoclopramide Anxiety 04/08/2017 documented as of this encounter (statuses as of 10/22/2020) Medications Medication Sig Dispensed Refills Start Date End Date Status SERTraline 50 mg Take 50 mg by 0 Active tablet mouth daily. sulfamethoxazole-trime Take 1 tablet by 20 tablet 0 10/30/2018 Active thoprim 800-160 mg per mouth every 12 tablet (twelve) hours. ondansetron (ZOFRAN) 4 Take 1 tablet by 12 tablet 0 01/11/2019 Active mg tabletIndications: mouth every 8 Abdominal pain, (eight) hours as chronic, right upper needed for quadrant Nausea and Vomiting (N/V). cyclobenzaprine 5 mg Take 1 tablet by 30 tablet 0 06/13/2019 Active tabletIndications: mouth 3 (three) Forearm injury, right, times daily. initial encounter, Chest wall pain, Abdominal pain, chronic, right upper quadrant, Right thigh pain naproxen sodium 550 mg Take 1 tablet by 14 tablet 0 06/13/2019 Active tabletIndications: mouth 2 (two) Chest wall pain, times daily with Abdominal pain, meals. chronic, right upper quadrant, Right thigh pain traMADol (ULTRAM) 50 Take 1 tablet by 9 tablet 0 06/13/2019 Active mg tabletIndications: mouth every 8 Forearm injury, right, (eight) hours as initial encounter, needed for Pain Chest wall pain, (scale 4-6). Abdominal pain, chronic, right upper quadrant, Right thigh pain buPROPion XL Take 1 tablet by 30 tablet 0 06/16/2019 Active (WELLBUTRIN XL) 150 mg mouth daily. 24 hr tabletIndications: Other depression albuterol 90 Inhale 2 Puffs 8.5 g 1 06/16/2019 A ctive mcg/actuation every 6 (six) inhalerIndications: hours as needed Mild asthma, for Wheezing or unspecified whether Shortness of complicated, Breath. unspecified whether persistent levoFLOXacin Take 1 tablet by 5 tablet 0 10/22/2020 0 Active (LEVAQUIN) 750 mg mouth every 24 tabletIndications: (twenty-four) Pyelonephritis hours for 5 days. documented as of this encounter (statuses as of 10/22/2020) Active Problems Problem Noted Date Bipolar affective disorder 07/08/2019 Well woman exam 06/16/2019 Contraception management 06/16/2019 Obesity (BMI 30-39.9) 06/16/2019 Essential hypertension, benign 06/16/2019 Other depression 06/16/2019 Asthma 06/16/2019 Alcohol use affecting in second trimester Overview: Admits to intermittent alcohol use. FOB struggles with alcohol use. Chest pain 10/14/2015 Cocaine abuse affecting 10/05/2015 Overview: Negative UDS for cocaine on 10/14 Mild tetrahydrocannabinol (THC) abuse 10/05/2015 Overview: Positive UDS for THC on 10/14 documented as of this encounter (statuses as of 10/22/2020) Resolved Problems Problem Noted Date Resolved Date Liveborn , of [place] , born in hospital by 01/12/2016 06/16/2019 vaginal delivery ROM (rupture of membranes), premature 01/11/2016 36 weeks gestation of 01/11/2016 06/16/20 19 Macrocytic anemia 10/15/2015 06/16/2019 Overview: Vit B12 and Folate levels pending Supervision of high-risk with insufficient prenata l 10/14/2015 06/16/2019 care, second trimester History of premature delivery, currently , second 06/16/2019 trimester with abdominal pain of lower quadrant, antepartum 10/04/2015 06/16/2019 documented as of this encounter (statuses as of 10/22/2020) Social History Tobacco Use Types Packs/Day Years Used Date Current Every Day Smoker Cigarettes 2 Sta rted: 06/16/1996 Smokeless Tobacco: Never Used Alcohol Use Drinks/Week oz/Week Comments Yes 0 Standard drinks or equivalent 0.0 Alcohol Habits Answer Date Recorded How often do you have a drink containing alcohol? Not asked How many drinks containing alcohol do you have on a typical 3 or 4 06/16/2019 day when you are drinking? How often do you have six or more drinks on one occasion? No t asked Sex Assigned at Date Recorded Not on file COVID-19 Exposure Response Date Recorded In the last month, have you been in contact with No / Unsure 10/22/2020 5:07 PM ORGAN PIPE FINISHER someone who was confirmed or suspected to have Coronavirus / COVID-19? documented as of this encounter Last Filed Vital Signs Vital Sign Reading Time Taken Comments Blood Pressure 167/101 10/22/2020 8:00 PM ORGAN PIPE FINISHER Pulse 70 10/22/2020 8:00 PM ORGAN PIPE FINISHER Temperature 37.1 C (98.7 F) 10/22/2020 3:57 PM ORGAN PIPE FINISHER Respiratory Rate 20 10/22/2020 8:00 PM ORGAN PIPE FINISHER Oxygen Saturation 99% 10/22/2020 8:00 PM ORGAN PIPE FINISHER Inhaled Oxygen Concentration - - Weight 68 kg (150 lb) 10/22/2020 3:57 PM ORGAN PIPE FINISHER Height - - Body Mass Index 27.44 07/29/2019 10:00 AM CDT documented in this encounter Discharge Instructions Carlee Momin FNP - 10/22/2020 You were seen today for Chief Complaint Patient presents with Abdominal Pain Arm Pain Seizures Your ER diagnosis was ICD-10-CM ICD-9-CM 1. Abdominal pain, generalized R10.84 789.07 2. Right forearm pain M79.631 729.5 3. Suprapubic abdominal pain R10.2 789.09 4. Pyelonephritis N12 590.80 NO LIFE-THREATENING FINDINGS ON TODAY'S EXAM. YOUR PRESCRIPTIONS : Medication List ASK your doctor about these medications albuterol 90 mcg/actuation inhaler Commonly known as: VENTOLIN Inhale 2 Puffs every 6 (six) hours as needed for Wheezing or Shortness of Breath. buPROPion XL 150 mg 24 hr tablet Commonly known as: Wellbutrin XL Take 1 tablet by mouth daily. cyclobenzaprine 5 mg tablet Commonly known as: FLEXERIL Take 1 tablet by mouth 3 (three) times daily. naproxen sodium 550 mg tablet Commonly known as: ANAPROX Take 1 tablet by mouth 2 (two) times daily with meals. ondansetron 4 mg tablet Commonly known as: Zofran Take 1 tablet by mouth every 8 (eight) hours as needed for Nausea and Vomiting (N/V). SERTraline 50 mg tablet Commonly known as: ZOLOFT sulfamethoxazole-trimethoprim 800-160 mg per tablet Commonly known as: BACTRIM DS Take 1 tablet by mouth every 12 (twelve) hours. traMADoL 50 mg tablet Commonly known as: Ultram Take 1 tablet by mouth every 8 (eight) hours as needed for Pain (scale 4-6). ER precautions and follow up : 1. Return to ER if your symptoms should worsen or fail to improve within 72 hours. 2. The care provided in the emergency room was for acute problems only. 3. You should follow up with your primary care provider within 72 hours. 4. Fill and take all your medications as prescribed. 5. Make sure you are staying adequately hydrated. Busque attencion immediatamente si usted tiene los sitomas sigue, vuelve peor o si hay sitomas nuevas o para cualquiera preoccupacion incluyendo dolor del pecho, falta aire, se siente debile, mas fievre, mas dolor, nausea, vomitando, sangrando que no es normal, confusion, baja or pierdas conciencia. FOLLOW-UP RECOMMENDATIONS: RECOMMEND FOLLOW-UP WITH A PRIMARY CARE PROVIDER OR SPECIALIST IN 2-5 DAYS, ESPECIALLY IF NO IMPROVEMENT IN SYMPTOMS. MAY FOLLOW-UP WITH A PROVIDER OF YOUR CHOICE, SUCH : 1. A PHYSICIAN OF YOUR CHOICE 2. [facility], . LOCATIONS IN [facility]. [facility], [address] [place] [address]; [phone] OR, IF YOU WISH TO FOLLOW-UP WITHIN THE [facility], MAY TRY THESE OPTIONS (CLINIC APPOINTMENTS AVAILABLE ON [id number] BASIS): 1. SCHEDULE AN APPOINTMENT ONLINE AT [email or web address] 2. OR CALL THE [facility] AT OR 3. OR CALL YOUR [facility] PHYSICIAN'S OFFICE DIRECTLY IF YOU ARE ALREADY AN ESTABLISHED [facility] PATIENT. documented in this encounter ED Notes Christa Stahl RN - 10/22/2020 3:50 PM CST34 year old female coming to the ER for generalized Abdominal pain. Patient reports having increase bathroom use and having frequent bowel movements. Patent reports having right arm numbness with pain since her visit at [facility] 10/09/2020 . Reports having increase seizure activity since her visit at [facility]. Patient is concerned about her health and wants a second opinion. documented in this encounter Miscellaneous Notes ED Nurse Note - Magali Christian RN - 10/22/2020 8:03 PM CSTPt given printed and verbal discharge instructions regarding Abdominal pain, Right forearm pain, Suprapubic abdominal pain, pyelonephritis encouraged hydration, Prescriptions provided Levaquin Discussed ibuprofen and to take with food to avoid GI distress. Discussed antibiotic therapy and to take until all completed unless adverse reaction occurs - if occurs, discontinue medication and follow up with pcp/seek medical attention Pt verbalized understanding of instructions, pt awake alert oriented, resp reg unlabored, skin w/d, color appropriate for race, moves all ext well,pt encouraged to follow up with pcp and or ER Advised to seek medical attention for new/prolonged/worsening of symptoms, Symptoms increase pain, any signs of infection, fever over 100.4 No adverse reaction to meds given in ER noted upon discharge PIV d'cd, dressing to site, catheter in tact. Awake, alert oriented, resp reg unlabored, skin w/d, pt leaving amb with steady gait, in no apparent distress, N PIPE FINISHER documented in this encounter Plan of Treatment Name Type Priority Associated Diagnoses Date/Ti ky EKG-12 LEAD ROUTINE HEART STATION STAT Abdominal pain, 03/2020 4:47 PM ONCE generalized [employer] PIPE FINISHER Urine Culture LAB STAT Abdominal pain, 10/22/2020 5:03 PM generalized ORGAN PIPE FINISHER [facility] STAT Suprapubic abdominal 10/22 6:07 PM AMPLIFIED ASSAY pain ORGAN PIPE FINISHER Name Type Priority Associated Diagnoses Order S chedule EKG-12 LEAD ROUTINE HEART STATION STAT Abdominal pain, ONCE for 1 ONCE generalized Occurrences sta rting 10/22/2020 unti l 10/22/2020 Urine Culture LAB TONNY Abdominal pain, TONNY for 1 generalized Occurrences sta rting 10/22/2020 unti l 10/22/2020 [facility] Routine Suprapubic abdominal ONCE for 1 AMPLIFIED ASSAY pain Occurrences starting 10/22/2020 unti l 10/22/2020 Health Maintenance Due Date Last Done Comments VARICELLA VACCINES (1 of 2 - 2-dose childhood series) 1985 PNEUMOCOCCAL 0-64 YEARS COMBINED SERIES (1 of 1 - 1990 PPSV23) Depression Screening 1996 DTaP,Tdap,and Td Vaccines (1 - Tdap) 2003 INFLUENZA VACCINE (#1) 2020 PAP SMEAR 06/16/2022 06/16/2019 documented as of this encounter Procedures Procedure Name Priority Date/Time Associated Diagnosis Comme nts CT ABDOMEN PELVIS W STAT 10/22/2020 5:59 Abdominal pain, R esults for this CONTRAST PM [employer] FINISHER generalized procedure are i n the results section. XR FOREARM 2 VW STAT 10/22/2020 5:20 Abdominal pain, Resul ts for this RIGHT PM [employer] FINISHER generalized procedure are in Right forearm pain the resul ts section. XR CHEST 1 VW STAT 10/22/2020 5:20 Abdominal pain, Results for this PM [employer]IPE FINISHER generalized procedure are i n the results section. POCT TEST TONNY 10/22/2020 5:04 Abdominal pain, R esults for this PM [employer] PIPE FINISHER generalized procedure are in Right forearm pain the resul ts section. URINALYSIS STAT 10/22/2020 5:03 Abdominal pain, Results for this PM [employer]IPE FINISHER generalized procedure are i n the results section. CBC WITH DIFF STAT 10/22/2020 5:03 Abdominal pain, Results for this PM [employer]IPE FINISHER generalized procedure are i n the results section. COMP. METABOLIC STAT 10/22/2020 5:03 Abdominal pain, Resul ts for this PANEL ([id number]) PM [employer] PIPE FINISHER generalized procedure are in the results section. TROPONIN I STAT 10/22/2020 5:03 Abdominal pain, Results for this PM [employer]IPE FINISHER generalized procedure are i n the results section. LIPASE STAT 10/22/2020 5:03 Abdominal pain, Results for this PM [employer] PIPE FINISHER generalized procedure are i n the results section. documented in this encounter Results CT ABDOMEN PELVIS W CONTRAST (10/22/2020 5:59 PM ORGAN PIPE FINISHER) Specimen Impressions Performed At PACS/VR/DOSE Cholelithiasis without CT evidence of ac ho-chunk cholecystitis. Otherwise, no acute process in the abdom en or pelvis is seen. RL: [id number] AFC: [id number] End of report 7: 39 PM Narrative Performed At This result has an attachment that is no t available. Ordering physician:CARLEE BREWER PACS/VR/DOSE CLINICAL HISTORY: Nausea, vomiting Abd pain, gastroent eritis or colitis suspected TECHNIQUE: Contrast enhanced CT images were obtained t hrough the abdomen and pelvis with IV contrast. Coronal and sagittal re formats were also obtained. ALARA (As Low As Reasonably Achievable) pr inciples was used during this examination. COMPARISON: None FINDINGS: The lung bases are clear bilaterally. The liver, spleen, pancreas, adrenal glands and kidney s are unremarkable. Cholelithiasis. The small bowel and colon are without bowel wall thick ening or dilatation. Unremarkable appendix. No free fluid or adenopathy is demonstrated in the abd omen or pelvis. No evidence of free air. The urinary bladder is unremarkable. The uterus is unr emarkable. The aortoiliac vessels are normal caliber. No acute osseous abnormality. Procedure Note [facility], Radiant Results Inft User - 2019 7:41 PM ORGAN PIPE FINISHER Ordering physician:CARLEE BREWER CLINICAL HISTORY: Nausea, vomiting Abd p ain, gastroenteritis or colitis suspected TECHNIQUE: Contrast enhanced CT images w ere obtained through the abdomen and pelvis with IV contrast. Coronal an d sagittal reformats were also obtained. ALARA (As Low As Reasonably Ac hievable) principles was used during this examination. COMPARISON: None FINDINGS: The lung bases are clear bilaterally. The liver, spleen, pancreas, adrenal gla nds and kidneys are unremarkable. Cholelithiasis. The small bowel and colon are without andi wel wall thickening or dilatation. Unremarkable appendix. No free fluid or adenopathy is demonstra clarence in the abdomen or pelvis. No evidence of free air. The urinary bladder is unremarkable. The uterus is unremarkable. The aortoiliac vessels are normal calibe r. No acute osseous abnormality. IMPRESSION Cholelithiasis without CT evidence of ac ho-chunk cholecystitis. Otherwise, no acute process in the abdom en or pelvis is seen. RL: [id number] [facility]: [id number] End of report Electronically signed by MD june Gates t 10/22/2020 7:39 PM Performing Organization Address [facility] Phone Number PACS/VR/DOSE XR FOREARM 2 VW RIGHT (10/22/2020 5:20 PM ORGAN PIPE FINISHER) Specimen Impressions Performed At PACS/VR/DOSE Soft tissue swelling with no acute bony abnormality. Narrative Performed At This result has an attachment that is no t available. EXAM: PACS/VR/DOSE XR FOREARM 2 VW RIGHT HISTORY: forearm pain COMPARISON: None FINDINGS: Imaging of the right forearm demonstrates no fracture or dislocation. Focal soft tissue fullness is seen along the volar proximal forearm. Procedure Note [facility], Radiant Results Inft User - 2019 6:05 PM ORGAN PIPE FINISHER EXAM: XR FOREARM 2 VW RIGHT HISTORY: forearm pain COMPARISON: None FINDINGS: Imaging of the right forearm demonstrate s no fracture or dislocation. Focal soft tissue fullness is seen along the v olar proximal forearm. IMPRESSION Soft tissue swelling with no acute bony abnormality. Performing Organization Address [facility] Phone Number PACS/VR/DOSE Chest 1 View (10/22/2020 5:20 PM ORGAN PIPE FINISHER) Specimen Impressions Performed At PACS/VR/DOSE No acute cardiopulmonary abnormality Preliminary Report Dictated by Resident: Agustín Gonzales I, Tj Wilson MD., have reviewed this study and agree with the above report. Narrative Performed At This result has an attachment that is no t available. XR CHEST 1 VW PACS/VR/DOSE HISTORY: 34 years-old; Female; abdominal pain. COMPARISON: Chest radiograph 10/14/2015, same day CT a bdomen pelvis FINDINGS: The lungs are clear with no focal consolidation. Ther e is no pleural effusion or pneumothorax. The cardiomediastinal silhouette is normal. No acute osseous abnormality is identified. Procedure Note [facility], Radiant Results Inft User - 2019 7:33 PM ORGAN PIPE FINISHER XR CHEST 1 VW HISTORY: 34 years-old; Female; abdominal pain. COMPARISON: Chest radiograph 10/14/2015, same day CT abdomen pelvis FINDINGS: The lungs are clear with no focal conso lidation. There is no pleural effusion or pneumothorax. The cardiomediastinal silhouette is norm al. No acute osseous abnormality is identifi ed. IMPRESSION No acute cardiopulmonary abnormality Preliminary Report Dictated by Resident: Agustín Gonzales I, Tj Wilson MD., have reviewed [facility] study and agree with the above report. Performing Organization Address [facility] Phone Number PACS/VR/DOSE POCT TEST (10/22/2020 5:04 PM ORGAN PIPE FINISHER) Pathologist Sig nature POCT PREG negative On board controls acceptable present with C Line POCT PREG LOT # [id number] POCT PREG TEST DATE Specimen Urine - URINE, CLEAN CATCH Troponin I (10/22/2020 5:03 PM ORGAN PIPE FINISHER) Pathologist Sig nature TROPONIN I <0.012 <=0.034 ng/mL [facility] Specimen Blood - VENOUS Narrative Performed At Equal or Less than 0.034 ng/ml---Normal [facility] Note: Cardiac troponin begins to rise 3-4 hours after the onset of ischemia. Repeat in 4-6 hours if the sample was drawn within 3-4 hours of the onset of the symptom and found normal. Between 0.035 and 0.120 ng/mL--- Borderline. Questionable myocardial injury or necros is Note: Serial measurement may be necessary to confirm or exclude the diagnosis of myocardial injury or necrosis; Clinical correlation (symptoms, EKGs, imaging studies, and others) required; Repeat in 4-6 hours if clinically indicated. Equal or Higher than 0.121 ng/mL---Abnormal. Myocardial Injury or Necrosis Likely Biotin has been reported to cause a negative bias, interpret results relative to patient's use of biotin. Performing Organization Address [facility] Cent[facility] Phone Number [facility] CLIA: [id number] [place] [address] LIPASE (10/22/2020 5:03 PM ORGAN PIPE FINISHER) Pathologist Sig Jule Game LIPASE 58 0 - 220 U/L [facility] Specimen Blood - VENOUS Performing Organization Address [facility] Phone Number [facility] CLIA: [id number] [place] [address] COMP. METABOLIC PANEL ([id number]) (10/22/2020 5:03 PM ORGAN PIPE FINISHER) [facility] nature NA 135 135 - 145 mmol/L [facility] K 3.8 3.5 - 5.0 mmol/L [facility] CL 101 98 - 108 mmol/L [facility] CO2 TOTAL 26 23 - 31 mmol/L [facility] AGAP 8 2 - 16 [facility] BUN 13 7 - 23 mg/dL [facility] GLUCOSE 92 70 - 110 mg/dL [facility] CREATININE 0.76 0.50 - 1.04 [facility] mg/dL [facility] TOTAL BILI 0.6 0.1 - 1.1 mg/dL [facility] CALCIUM 9.7 8.6 - 10.6 mg/dL [facility] T PROTEIN 7.0 6.3 - 8.2 g/dL [facility] ALBUMIN 4.1 3.5 - 5.0 g/dL [facility] ALK PHOS 81 34 - 122 U/L [facility] ALTv 20 5 - 35 U/L [facility] AST(SGOT) 25 13 - 40 U/L [facility] eGFR Calculation 86.6 mL/min/1.73m2 [facility] ([facility] Y eGFR Calculation 105.0 mL/min/1.73m2 [facility] () [facility] Specimen Blood - VENOUS Narrative Performed At Association of Glomerular Filtration Rate (GFR) [facility] and Staging of Kidney Disease* + + +- + | GFR (mL/min/1.73 m2) | With Kidney Damage | Without Kidney Damage + + +- + | >90 | Stage one | Normal + + +- + | 60-89 | Stage two | Decreased GFR + + +- + | 30-59 | Stage three | Stage three + + +- + | 15-29 | Stage four | Stage four + + +- + | <15 (or dialysis) | Stage five | Stage five + + +- + *Each stage assumes the associated GFR level has been in effect for at least three months. Stages 1 to 5, with or without kidney disease, indicate chronic kidney disease. Notes: Determination of stages one and two (with eGFR >59mL/min/1.73 m2) requires estimation of kidney damage for at least three months as defined by structural or functional abnormalities of the kidney, manifested by either: Pathological abnormalities or Markers of kidney damage (including abnormalities in the composition of the blood or urine or abnormalities in imaging tests). Performing Organization Address City/State/Zipcode Phone Number [facility] CLIA: [id number] [place] [address] CBC with Differential (10/22/2020 5:03 PM ORGAN PIPE FINISHER) [facility] WBC 8.19 4.30 - 11.10 [facility] 10*3/L [facility] RBC 3.74 (L) 3.93 - 5.25 [facility] 10*6/L [facility] HGB 12.4 11.6 - 15.0 [facility] g/dL [facility] HCT 36.0 35.7 - 45.2 % [facility] MCV 96.3 (H) 80.6 - 95.5 fL [facility] MCH 33.2 (H) 25.9 - 32.8 pg [facility] MCHC 34.4 31.6 - 35.1 [facility] g/dL [facility] RDW-SD 41.1 39.0 - 49.9 fL [facility] RDW-CV 11.8 (L) 12.0 - 15.5 % [facility] PLT 228 166 - 358 [facility] 10*3/L [facility] MPV 10.9 9.5 - 12.9 fL [facility] NRBC/100 WBC 0.0 0.0 - 10.0 /100 [facility] WBCs [facility] NRBC x10^3 <0.01 10*3/L [facility] GRAN MAT (NEUT) % 51.0 % [facility] IMM GRAN % 0.20 % [facility] LYMPH % 39.1 % [facility] MONO % 5.9 % [facility] EOS % 3.3 % [facility] BASO % 0.5 % [facility] HOSPITAL LABORATORY GRAN MAT x10^3(ANC) 4.18 1.88 - 7.09 [facility] 10*3/uL HOSPITAL LABORATORY IMM GRAN x10^3 <0.03 0.00 - 0.06 [facility] 10*3/uL HOSPITAL LABORATORY LYMPH x10^3 3.20 1.32 - 3.29 [facility] 10*3/uL HOSPITAL LABORATORY MONO x10^3 0.48 0.33 - 0.92 [facility] 10*3/uL HOSPITAL LABORATORY EOS x10^3 0.27 0.03 - 0.39 [facility] 10*3/uL HOSPITAL LABORATORY BASO x10^3 0.04 0.01 - 0.07 [facility] 10*3/uL HOSPITAL LABORATORY Specimen Blood - VENOUS Performing Organization Address [facility]/Zipcode Phone Number [facility] CLIA: [id number] [place], [place] [id number] LABORATORY [address] Urinalysis (10/22/2020 5:03 PM ORGAN PIPE FINISHER) Pathologist Sig nature APPEARANCE Hazy (A) Clear [facility] COLOR Yellow Yellow [facility] PH 5.0 4.8 - 8.0 [facility] SP GRAVITY 1.025 1.003 - 1.030 [facility] GLU U QUAL Normal Normal [facility] BLOOD Negative Negative [facility] KETONES Negative Negative [facility] PROTEIN Negative Negative [facility] UROBILIN Normal Normal [facility] BILIRUBIN Negative Negative [facility] NITRITE Positive (A) Negative [facility] LEUK MARCUS 250/uL (A) Negative [facility] RBC/HPF 3 0 - 3 HPF [facility] WBC/HPF 35 (H) 0 - 5 HPF [facility] BACTERIA Few (A) Negative [facility] MUCOUS Marked (A) Negative LPF [facility] SQ EPITH 7 HPF [facility] Specimen Urine - URINE, CLEAN CATCH Performing Organization Address [facility]/Zipcode Phone Number [facility] CLIA: [id number] [place] [address] documented in this encounter Visit Diagnoses Diagnosis Abdominal pain, generalized - Primary Right forearm pain Pain in limb Suprapubic abdominal pain Abdominal pain, other specified site Pyelonephritis Pyelonephritis, unspecified documented in this encounter Administered Medications Medication Order MAR Action Action Date Dose Rate Site iohexol (OMNIPAQUE 350 BULK-150 Given 10/22/2020 5:50 PM ORGAN PIPE FINISHER 12 0 mL mL) injection 120 mL 120 mL, Intravenous, ONCE, 1 dose, 10/22/20 at 1800, Routine levoFLOXacin in D5W (LEVAQUIN) 750 mg/150 mL Given 03/2020 6:07 PM ORGAN PIPE FINISHER 750 mg Piggyback 750 mg 750 mg, IV Piggyback, ONCE, 1 dose, 10/22/20 at 1845, 150 mL, Reason for Anti-Infective: Documented Infection, Documented Infection Site: Urine, Duration of Therapy: 7 days maalox:diphenhydrAMINE:lidocaine 2 % viscous Given 03/2020 5:03 PM ORGAN PIPE FINISHER 15 mL 1:1:1 (FIRST-MOUTHWASH BLM) oral suspension 15 mL 15 mL, Oral, ONCE, 1 dose, 10/22/20 at 1700, TONNY NaCl 0.9% (NS) bolus infusion New Bag 10/22/2020 5:02 PM ORGAN PIPE FINISHER 1,000 mL 999 mL/hr 1,000 mL at 999 mL/hr, 1,000 mL, IV Infusion, ONCE, 1 dose, 10/22/20 at 1700, TONNY documented in this encounter Insurance Payer Benefit Plan / Subscriber ID Effective Phone Address [employer] Dates MEDICAID MEDICAID PENDING [id number] [place] [address] documented as of this encounter"
[2020-10-27 23:31] LABS: Absolute Lymphocytes (CBC) 3.1 K/uL (0.7-4.9); Basophils % 1.3 % (0-1.3); Hematocrit 36.5 % (36.0-45.0); Lymphocytes % 45.2 % (15.3-44.8); RBC Red Blood Cell Count 3.75 M/uL (3.86-4.86)
[2020-10-27 23:44] LABS: BUN Blood Urea Nitrogen 9 mg/dL (7-18); Bicarbonate 27 mmol/L (21-32); Glucose Level 87 mg/dL (74-106); Potassium 3.8 mmol/L (3.5-5.1); Sodium Level 140 mmol/L (136-145)
[2020-10-27] MEDS ORDERED: HYDROCODONE/APAP 5/325 MG TAB ONE (23:59)
--- NOTE | 2020-10-28 00:34 | ER ---
Nurse's Notes [facility] Name: Laly Guajardo Age: 34 yrs Sex: Female : 1985 Arrival Date: 10/27/2020 Time: 22:29 Bed 7 Private MD: Diagnosis: Urinary tract infection, site not specified;Cholelithiasis Presentation: 10/27 23:06 Chief complaint: Patient states: HX of UTI but wasn't able to get the prescription. Pt wh now C/o back pain and pain while urinating. Coronavirus screen: Client denies travel out of the [place] in the last 14 days. At this time, the client does not indicate any symptoms associated with coronavirus-19. Ebola Screen: Patient negative for fever greater than or equal to 101.5 degrees Fahrenheit, and additional compatible Ebola Virus Disease symptoms Patient denies exposure to infectious person. Initial Sepsis Screen: Does the patient meet any 2 criteria? No. Patient's initial sepsis screen is negative. Does the patient have a suspected source of infection? Yes: Dysuria/Frequency/Urgency/UTI. Risk Assessment: Do you want to hurt yourself or someone else? Patient reports no desire to harm self or others. Onset of symptoms was October 27, 2020. 23:06 Method Of Arrival: Wheelchair 23:06 Acuity: TYRA 3 wh BINGO USHER: 23:11 LMP N/A - Unknown Historical: - Allergies: 23:08 PENICILLINS; 23:08 Amoxicillin; 23:08 Reglan; wh - PMHx: 23:08 Anxiety; Depression; Seizures; Hypertension; Asthma; wh - Immunization history:: Adult Immunizations not up to date. - Social history:: Smoking status: Patient reports the use of cigarette tobacco products, smokes one-half pack cigarettes per day, Patient uses street drugs, marijuana. - Family history:: not pertinent. - Hospitalizations: : No recent hospitalization is reported. Screenin:10 Abuse screen: Denies threats or abuse. Denies injuries from another. Nutritional wh screening: No deficits noted. Tuberculosis screening: No symptoms or risk factors identified. Fall Risk None identified. Assessment: 23:08 General: Appears in no apparent distress. uncomfortable, Behavior is cooperative, wh appropriate for age. Pain: Complains of pain in right mid back and left mid back Pain radiates to suprapubic area, right lower quadrant and left lower quadrant Pain currently is 8 out of 10 on a pain scale. Pain began 2-3 days ago. Neuro: Level of Consciousness is awake, alert, obeys commands, Oriented to person, place, time, situation, Appropriate for age. Cardiovascular: Capillary refill < 3 seconds. Respiratory: Airway is patent Respiratory effort is even, unlabored, Respiratory pattern is regular, symmetrical. GI: Abdomen is round non-distended, Reports lower abdominal pain. : Reports pain with urination. EENT: No signs and/or symptoms were reported regarding the EENT system. Derm: Skin is intact, is healthy with good turgor, Skin is pink, warm \T\ dry. normal. Musculoskeletal: Circulation, motion, and sensation intact. 23:50 Reassessment: Patient appears in no apparent distress at this time. No changes from previously documented assessment. Patient and/or family updated on plan of care and expected duration. Pain level reassessed. Patient is alert, oriented x 3, equal unlabored respirations, skin warm/dry/pink. 10/28 00:59 Reassessment: Patient appears in no apparent distress at this time. Patient and/or family updated on plan of care and expected duration. Pain level reassessed. Patient is alert, oriented x 3, equal unlabored respirations, skin warm/dry/pink. Patient states feeling better. Patient states symptoms have improved. Vital Signs: 10/27 23:06 BP 145 / 102; Pulse 79; Resp 20; Temp 98; Pulse Ox 98% on R/A; Weight 72.57 kg; Height 5 ft. 2 in. (157.48 cm); Pain 06/27; 23:51 BP 121 / 85; Pulse 72; Resp 18; Pulse Ox 98% on R/A; 10/28 00:59 BP 118 / 66; Pulse 62; Resp 18; Pulse Ox 98% on R/A; 10/27 23:06 Body Mass Index 29.26 (72.57 kg, 157.48 cm) ED Course: 10/27 22:29 Patient arrived in ED. bp1 22:49 Gareth Boone MD is Attending Physician. rn 22:55 Star Phillips RN is Primary Nurse. rr5 23:07 Triage completed. 23:10 Urine collected: clean catch specimen, clear. rr5 23:11 Patient has correct armband on for positive identification. Placed in gown. Bed in low wh position. Call light in reach. Side rails up X 1. Pulse ox on. NIBP on. 23:11 Arm band placed on right wrist. 23:15 Inserted saline lock: 20 gauge in left antecubital area, using aseptic technique. Blood wh collected. 23:50 CT Stone Protocol In Process Unspecified. EDMS 10/28 01:00 Assist provider with bone marrow aspiration. IV discontinued, intact, bleeding wh controlled, No redness/swelling at site. 01:01 Primary Nurse role handed off by Star Phillips RN 01:01 Saniya Hughes is Primary Nurse. 01:02 Primary Nurse role handed off by Saniya Hughes 01:02 Saniya Hughes is Primary Nurse. Administered Medications: 10/27 23:47 Drug: Rodeo 5 mg-325 mg 1 tabs Route: PO; 12 01:00 Follow up: Response: No adverse reaction; Pain is decreased; RASS: Alert and Calm (0) 01:02 Drug: Flagyl 2 grams Route: PO; 01:03 Follow up: Response: No adverse reaction Outcome: 00:33 Discharge ordered by . rn 01:01 Discharged to home via wheelchair. 01:01 Condition: stable 01:01 Discharge instructions given to patient, Instructed on discharge instructions, follow up and referral plans. medication usage, POC Demonstrated understanding of instructions, follow-up care, medications, POC Prescriptions given X 1. 01:01 Patient left the ED. 01:03 Patient left the ED. Signatures: Dispatcher [employer] EDTN Gareth Boone MD MD rn [place], Winsy Star Phillips, RN RN rr5 Rut Teague bp1
--- NOTE | 2020-10-28 00:34 | EDPHYS ---
Physician Documentation [facility] Name: Laly Guajardo Age: 34 yrs Sex: Female : 1985 Arrival Date: 10/27/2020 Time: 22:29 Bed 7 Private MD: ED Physician Gareth Boone HPI: 10/27 23:04 This 34 yrs old Black Female presents to ER via Unassigned with complaints of Flank rn Pain, UTI. 23:04 The patient complains of pain in the left mid back and right mid back. The pain does rn not radiate. Onset: The symptoms/episode began/occurred 3 day(s) ago. Modifying factors: The symptoms are alleviated by nothing. the symptoms are aggravated by palpation/percussion. Associated signs and symptoms: Pertinent positives: dysuria, urinary frequency, Pertinent negatives: fever. Severity of pain: At its worst the pain was mild in the emergency department the pain is unchanged. The patient has experienced similar episodes in the past. The patient has been recently seen by a physician:. Reports given abx for UTI 3 days ago at another ER, did not fill prescription, now feels worse. + dysuria and bilateral flank pain. . MANAGER CLINICAL RESEARCH: 23:11 LMP N/A - Unknown wh Historical: - Allergies: 23:08 PENICILLINS; wh 23:08 Amoxicillin; 23:08 Reglan; wh - PMHx: 23:08 Anxiety; Depression; Seizures; Hypertension; Asthma; wh - Immunization history:: Adult Immunizations not up to date. - Social history:: Smoking status: Patient reports the use of cigarette tobacco products, smokes one-half pack cigarettes per day, Patient uses street drugs, marijuana. - Family history:: not pertinent. - Hospitalizations: : No recent hospitalization is reported. ROS: 23:04 Constitutional: Negative for fever, chills, and weight loss, Eyes: Negative for injury, rn pain, redness, and discharge, Cardiovascular: Negative for chest pain, palpitations, and edema, Respiratory: Negative for shortness of breath, cough, wheezing, and pleuritic chest pain, Abdomen/GI: Negative for abdominal pain, and constipation, Back: + bilateral flank pain : + dysuria MS/Extremity: Negative for injury and deformity, Skin: Negative for injury, rash, and discoloration, Neuro: Negative for seizure Exam: 23:04 Constitutional: This is a well developed, well nourished patient who is awake, alert, rn and in no acute distress. Head/Face: Normocephalic, atraumatic. Eyes: Pupils equal round and reactive to light, extra-ocular motions intact. Lids and lashes normal. Conjunctiva and sclera are non-icteric and not injected. Cornea within normal limits. Periorbital areas with no swelling, redness, or edema. ENT: MMM Cardiovascular: Regular rate and rhythm. No pulse deficits. Respiratory: Speaking full sentences. No increased work of breathing, no retractions or nasal flaring. Abdomen/GI: soft, non-tender Back: No spinal tenderness. No costovertebral tenderness. Full range of motion. MS/ Extremity: Pulses equal, no cyanosis. Neurovascular intact. Full, normal range of motion. Equal circumference. Neuro: Awake and alert, GCS 15, oriented to person, place, time, and situation. Cranial nerves II-XII grossly intact. Motor strength 5/5 in all extremities. Sensory grossly intact. Cerebellar exam normal. Normal gait. Vital Signs: 23:06 BP 145 / 102; Pulse 79; Resp 20; Temp 98; Pulse Ox 98% on R/A; Weight 72.57 kg; Height 5 ft. 2 in. (157.48 cm); Pain 8/10; 23:51 BP 121 / 85; Pulse 72; Resp 18; Pulse Ox 98% on R/A; 10/28 00:59 BP 118 / 66; Pulse 62; Resp 18; Pulse Ox 98% on R/A; 10/27 23:06 Body Mass Index 29.26 (72.57 kg, 157.48 cm) MDM: 10/27 22:49 Patient medically screened. rn 10/28 00:33 Differential diagnosis: nephrolithiasis, pyelonephritis, UTI. Data reviewed: vital rn signs, nurses notes, lab test result(s), radiologic studies, CT scan, and as a result, I will discharge patient. Counseling: I had a detailed discussion with the patient and/or guardian regarding: the historical points, exam findings, and any diagnostic results supporting the discharge/admit diagnosis, lab results, radiology results, the need for outpatient follow up, to return to the emergency department if symptoms worsen or persist or if there are any questions or concerns that arise at home. Response to treatment: the patient's symptoms have markedly improved after treatment, and as a result, I will discharge patient. Special discussion: I discussed with the patient/guardian in detail that at this point there is no indication for admission to the hospital. It is understood, however, that if the symptoms persist or worsen the patient needs to return immediately for re-evaluation. 10/27 23:04 Order name: Urine Culture rn 10/27 23:04 Order name: Urine Microscopic Only; Complete Time: 00:58 rn 10/27 23:04 Order name: CBC with Diff; Complete Time: 00:32 rn 10/27 23:04 Order name: Basic Metabolic Panel; Complete Time: 00:32 rn 10/27 23:14 Order name: Urine Dipstick--Ancillary (enter results); Complete Time: 00:58 mw2 10/27 23:14 Order name: Urine --Ancillary (enter results); Complete Time: 00:58 mw2 10/27 23:04 Order name: Urine Test (obtain specimen); Complete Time: 23:10 rn 10/27 23:04 Order name: Urine Dipstick-Ancillary (obtain specimen); Complete Time: 23:10 rn 10/27 23:04 Order name: IV Start; Complete Time: 23:11 rn 10/27 23:04 Order name: CT Stone Protocol rn Administered Medications: 10/27 23:47 Drug: Roxana 5 mg-325 mg 1 tabs Route: PO; 10/28 01:00 Follow up: Response: No adverse reaction; Pain is decreased; RASS: Alert and Calm (0) 01:02 Drug: Flagyl 2 grams Route: PO; 01:03 Follow up: Response: No adverse reaction Disposition: 10/28/20 00:33 Discharged to Home. Impression: Urinary tract infection, site not specified, Cholelithiasis. - Condition is Stable. - Discharge Instructions: Urinary Tract Infection, Adult, Cholelithiasis. - Prescriptions for Cipro 500 mg Oral Tablet - take 1 tablet by ORAL route every 12 hours for 7 days; 14 tablet. - Medication Reconciliation Form, Thank You Letter, Antibiotic Education, Prescription Opioid Use form. - Follow up: Private Physician; When: As needed; Reason: Recheck today's complaints, Re-evaluation by your physician. - Problem is new. - Symptoms have improved. Signatures: Dispatcher [employer] EDMS Gareth Boone MD MD rn Saniya Hughes Corrections: (The following items were deleted from the chart) 01: 00:33 10/28/2020 00:33 Discharged to Home. Impression: Urinary tract infection, site wh not specified; Cholelithiasis. Condition is Stable. Forms are Medication Reconciliation Form, Thank You Letter, Antibiotic Education, Prescription Opioid Use. Follow up: Private Physician; When: As needed; Reason: Recheck today's complaints, Re-evaluation by your physician. Problem is new. Symptoms have improved. rn 01:03 01:10/28/2020 00:33 Discharged to Home. Impression: Urinary tract infection, site wh not specified; Cholelithiasis. Condition is Stable. Discharge Instructions: Urinary Tract Infection, Adult, Cholelithiasis. Prescriptions for Cipro 500 mg Oral Tablet - take 1 tablet by ORAL route every 12 hours for 7 days; 14 tablet. and Forms are Medication Reconciliation Form, Thank You Letter, Antibiotic Education, Prescription Opioid Use. Follow up: Private Physician; When: As needed; Reason: Recheck today's complaints, Re-evaluation by your physician. Problem is new. Symptoms have improved. wh
[2020-10-28 00:52] LABS: Urine Blood NEGATIVE (NEG); Urine Glucose NEGATIVE (NEG); Urine Protein NEGATIVE (NEG); Urine Specific Gravity 1.025 (1.005-1.030)
[2020-10-28 00:52] LABS: Urine Bacteria <20 /HPF (<20); Urine RBC <5 /HPF (NONE SEEN); Urine Trichomonas PRESENT (NONE SEEN)
[2020-10-28] MEDS ORDERED: metroNIDAZOLE 500 MG TABLET ONE (01:16)
--- NOTE | 2020-10-28 12:01 | RAD REPORT ---
EXAM DESCRIPTION: CT - Stone Protocol - 10/28/2020 6:28 am CLINICAL HISTORY: FLANK PAIN COMPARISON: None Available. TECHNIQUE: CT of the abdomen and pelvis without IV contrast. Evaluation of the solid organs and vasc ulature is suboptimal due to lack of IV contrast. FINDINGS: Lung Bases: The visualized lung bases are clear. Bones: No destructive bone lesions identified. Abdomen: Liver: The liver has normal size and density. Gallbladder: Calcified gallstones. No definite pericholecystic inflammatory change.. Spleen, Pancreas, and Adrenal Glands: The spleen, pancreas, and adrenal glands are unremarkable. Kidneys: The kidneys have normal size without evidence of hydronephrosis. No obstructing ureteral blade culi. Vasculature: Aortoiliac atherosclerosis. IVC is unremarkable. Stomach: The stomach and duodenum have normal course. Other: No free intraperitoneal air. Trace free fluid in the pelvis may be physiologic. Pelvis: Bladder: Urinary bladder is unremarkable. Bowel: No dilated loops of large or small bowel. Appendix: Normal appendix. Pelvis: Uterus is not enlarged. IMPRESSION: 1. Cholelithiasis without other CT evidence of acute cholecystitis. 2. Trace free pelvic fluid may be physiologic. This exam was performed according to our departmental dose-optimization program, which includes autom ated exposure control, adjustment of the mA and/or kV according to patient size and/or use of iterati ve reconstruction technique. Electronically signed by: Yuval Vásquez 10/28/2020 12:04 AM CERTIFIED JUVENILE PROBATION OFFICER Due to temporary technical issues with the PACS/Fluency reporting system, reports are being signed by the in house radiologist without review as a courtesy to ensure prompt reporting. The interpreting r adiologist is fully responsible for the content of the report.
== END 2020-10-28 01:03 | disposition home or self-care (01) ==
LOC: ER 22:29
DX: N39.0 Urinary tract infection, site not specified (principal); K80.20 Calculus of gallbladder without cholecystitis without obstruction; F17.210 Nicotine dependence, cigarettes, uncomplicated; I10 Essential (primary) hypertension; Z88.0 Allergy status to penicillin; Z88.1 Allergy status to other antibiotic agents; Z88.8 Allergy status to other drugs, medicaments and biological substances
CPT/HCPCS: 36415; 74176; 76377; 80048; 81003; 81015; 81025; 85025; 87086; 87088; 99285

== ENCOUNTER 2020-10-29 22:03 | Emergency (ER) | payer OTHER, SELFPAY ==
--- OUTSIDE RECORDS SUMMARY | 2020-10-29 22:05 | XMS REPORT | Continuity of Care Document ---
:1985 Author Organization [facility] t Address [address] [place] [address] Care Team Providers Name Role Phone Gale [...] Clinicians Facility Department ID 2020-10-22 2020-10-22 Emergency Steve [facility] [id number] 16:02:00 20:05:00 Lakhwinder Robin [id number] [place] [id number] [place] [phone] [id number] 2019-07-29 2019-07-29 Emergency Missy [facility] [id number] 09:50:45 12:45:00 Quinton Robin [id number] [place] [id number] [place] [id number] [id number] 2019-07-29 2019-07-29 Orders Doctor ROSE [id number] 00:00:00 00:00:00 Only Unassigned, MOOK [id number] [place] [id number] 2019-07-27 2019-07-27 Telephone Paula [facility] [id number] 00:00:00 00:00:00 Kristina Loera REEL SYSTEM OPERATOR [id number] [facility] [id number] MATERNAL [id number] & CHILD [address] [place] [address] 2019-07-11 2019-07-12 Emergency Willie [facility] [id number] 23:24:47 01:29:00 Meredith Robin [id number] [place] [id number] [place] [id number] [id number] 2019-07-08 2019-07-08 Office [facility] [id number] 15:11:03 16:28:52 Visit Kristina Loera REEL SYSTEM OPERATOR [id number] [facility] [id number] MATERNAL [phone] & CHILD [address] [place] [address] Results This patient has no known results.
[2020-10-29 23:00] LABS: Absolute Lymphocytes (CBC) 2.9 K/uL (0.7-4.9); Basophils % 0.8 % (0-1.3); Hematocrit 34.4 % (36.0-45.0); Lymphocytes % 36.7 % (15.3-44.8); MPV 9.6 fL (7.6-11.3); RBC Red Blood Cell Count 3.56 M/uL (3.86-4.86)
[2020-10-29 23:04] LABS: Protime INR 1.01
[2020-10-29 23:20] LABS: ALT/SGPT 31 U/L (12-78); AST/SGOT 27 U/L (15-37); Albumin 3.4 g/dL (3.4-5.0); Alkaline Phosphatase 88 U/L (45-117); BUN Blood Urea Nitrogen 7 mg/dL (7-18); Bicarbonate 22 mmol/L (21-32); Bilirubin Direct < 0.1 mg/dL (0-0.2); Bilirubin Total 0.5 mg/dL (0.2-1.0); Glucose Level 85 mg/dL (74-106); Potassium 3.5 mmol/L (3.5-5.1); Protein, Total 7.1 g/dL (6.4-8.2); Sodium Level 141 mmol/L (136-145)
[2020-10-30 00:52] LABS: Urine Blood NEGATIVE (NEG); Urine Glucose NEGATIVE (NEG); Urine Protein NEGATIVE (NEG); Urine Specific Gravity 1.005 (1.005-1.030); Urine pH 5.5 (5.0-7.0)
[2020-10-30 00:52] LABS: Urine Specific Gravity 1.005 (1.005-1.030)
[2020-10-30 00:53] LABS: Barbiturates NEGATIVE (NEGATIVE); Benzodiazepines NEGATIVE (NEGATIVE); Cocaine NEGATIVE (NEGATIVE); METHAMPHETAM NEGATIVE (NEGATIVE); Methadone NEGATIVE (NEGATIVE); Opiates NEGATIVE (NEGATIVE); Phencyclidine NEGATIVE (NEGATIVE); THC Cannibis POSITIVE (NEGATIVE)
--- NOTE | 2020-10-30 01:36 | EDPHYS ---
Physician Documentation [facility] Marybeth Name: Laly Guajardo Age: 34 yrs Sex: Female : 1985 Arrival Date: 10/29/2020 Time: 22:06 Bed 8 Private MD: ED Physician Tigre Munguia HPI: 10/29 22:36 This 34 yrs old Black Female presents to ER via EMS with complaints of Psych Problem. pm1 22:36 The patient presents to the emergency department with depression, over a relationship, pm1 has had a recent break-up. Onset: The symptoms/episode began/occurred just prior to arrival. Past psychiatric history: Prior diagnosis: bipolar disorder, Psychiatric medications include: Zoloft, Trazadone. Associated signs and symptoms: Pertinent positives; depression, Pertinent negatives: suicide ideation. Severity of symptoms: in the emergency department the symptoms have improved mildly, Patient reports that she just wants to go to her uncle's house because he is the only family that cares about her. Patient was brought to the ER because she was seen trying to crawl into the window of her home. She reports that she did not have her judd because she was locked out by her . She is currently depressed because her left her for her aunt and she stated to the police who were at the seen that she wanted to kill them. She reports to me that she was just angry about losing her when she said that and does not want to kill them. She just wants to go to her uncle's house. 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 - Social history:: Patient uses street drugs, marijuana, Smoking status: Patient reports the use of cigarette tobacco products, denies chronic smoking, but will smoke occasionally. ROS: 22:36 Constitutional: Negative for fever, chills, and weight loss, Cardiovascular: Negative pm1 for chest pain, palpitations, and edema, Respiratory: Negative for shortness of breath, cough, wheezing, and pleuritic chest pain, Abdomen/GI: Negative for abdominal pain, nausea, vomiting, diarrhea, and constipation, Back: Negative for injury and pain, MS/Extremity: Negative for injury and deformity, Skin: Negative for injury, rash, and discoloration, Neuro: Negative for headache, weakness, numbness, tingling, and seizure. 22:36 Psych: Positive for depression, marijuana abuse, Negative for homicidal ideation, suicidal ideation. Exam: 22:36 Constitutional: This is a well developed, well nourished patient who is awake, alert, pm1 and in no acute distress. Head/Face: Normocephalic, atraumatic. 22:36 Skin: Warm, dry with normal turgor. Normal color with no rashes, no lesions, and no evidence of cellulitis. MS/ Extremity: Pulses equal, no cyanosis. Neurovascular intact. Full, normal range of motion. 22:36 Cardiovascular: Exam negative for acute changes, Rate: normal, Rhythm: regular, Pulses: no pulse deficits are appreciated. 22:36 Respiratory: Exam negative for acute changes, respiratory distress, shortness of breath. 22:36 Abdomen/GI: Inspection: abdomen appears normal, Palpation: abdomen is soft and non-tender, in all quadrants. 22:36 Neuro: Exam negative for acute changes, Orientation: is normal, Mentation: is normal, Motor: is normal, moves all fours. 22:36 Psych: Behavior/mood is cooperative, depressed, Affect is animated, Oriented to person, place, time, Patient has no thoughts/intents to harm self or others. Delusions/hallucinations are not present. Vital Signs: 22:18 BP 112 / 81 LA Supine (auto/reg); Pulse 88 MON; Resp 18 S; Temp 98.2(TE); Pulse Ox 100% lp1 on R/A; Weight 92.99 kg (R); Height 5 ft. 2 in. (157.48 cm) (R); 23:16 BP 125 / 80; Pulse 70; Resp 18; Pulse Ox 98% on R/A; lp1 10/30 00:30 BP 99 / 50; Pulse 70; Resp 18; Pulse Ox 96% on R/A; lp1 10/29 22:18 Body Mass Index 37.49 (92.99 kg, 157.48 cm) lp1 MDM: 10/29 22:15 Patient medically screened. pm1 23:50 Data reviewed: vital signs. pm1 10/30 01:13 ED course: Patient talking to denice red. She is a patient of [facility] on out patient pm1 basis. 01:34 Counseling: I had a detailed discussion with the patient and/or guardian regarding: the pm1 historical points, exam findings, and any diagnostic results supporting the discharge/admit diagnosis, lab results, the need for outpatient follow up, a psychiatrist, Denice red, to return to the emergency department if symptoms worsen or persist or if there are any questions or concerns that arise at home. 01:34 ED course: Jose Alfredo Treviño evaluated patient and does not see any reason for inpatient pm1 treatment. Patient is not homicidal or suicidal. Patient is experiencing anger issues over a card game and her relationship with her . She normally does not drink alcohol and it made her temper harder to control. Patient does not want any inpatient treatment either and will follow up with Denice Red on outpatient treatment next week. 10/29 22:28 Order name: Acetaminophen; Complete Time: 23:32 pm1 10/29 22:28 Order name: Basic Metabolic Panel; Complete Time: 23:32 pm1 10/29 22:28 Order name: CBC with Diff; Complete Time: 23:32 pm1 10/29 22:28 Order name: ETOH Level; Complete Time: 23:37 pm1 10/29 22:28 Order name: Hepatic Function; Complete Time: 23:32 pm1 10/29 22:28 Order name: PT-INR; Complete Time: 23:32 pm1 10/29 22:28 Order name: Urine Test (obtain specimen); Complete Time: 00:37 pm1 10/29 22:28 Order name: Ptt, Activated; Complete Time: 23:32 pm1 10/29 22:28 Order name: Salicylate; Complete Time: 23:32 pm1 10/29 22:28 Order name: Urine Drug Screen; Complete Time: 01:05 pm1 10/29 22:28 Order name: EKG; Complete Time: 22:29 pm1 10/29 22:28 Order name: EKG - Nurse/Tech; Complete Time: 23:18 pm1 10/30 00:37 Order name: Urine Dipstick--Ancillary (enter results); Complete Time: 01:05 ds4 10/30 00:39 Order name: Urine --Ancillary (enter results); Complete Time: 01:05 ds4 10/29 22:28 Order name: IV Saline Lock; Complete Time: 22:48 pm1 10/29 22:28 Order name: Labs collected and sent; Complete Time: 22:48 pm1 10/29 22:28 Order name: Urine Dipstick-Ancillary (obtain specimen); Complete Time: 00:38 pm1 Administered Medications: No medications were administered Disposition: 07:04 Co-signature as Attending Physician, Tigre Munguia MD I agree with the assessment and 4 plan of care. Disposition: 10/30/20 01:35 Discharged to Home. Impression: Acute stress reaction, Alcohol abuse, Cannabis abuse. - Condition is Stable. - Discharge Instructions: Finding Treatment for Addiction, Cannabis Use Disorder, Alcohol Abuse and Nutrition, Stress and Stress Management. - Medication Reconciliation Form, Thank You Letter, Antibiotic Education, Prescription Opioid Use form. - Follow up: Emergency Department; When: As needed; Reason: Worsening of condition. Follow up: Private Physician; When: 2 - 3 days; Reason: Recheck today's complaints, Continuance of care, Re-evaluation by your physician. - Problem is new. - Symptoms have improved. Signatures: Dispatcher [employer] Loraine Herron RN RN lp1 Sandeep Antunez, SUSTAINABILITY DIRECTOR SUSTAINABILITY DIRECTOR pm1 Tigre Munguia MD MD tw4 Corrections: (The following items were deleted from the chart) 01:35 01:35 10/30/2020 01:35 Discharged to Home. Impression: Acute stress reaction. Condition pm1 is Stable. Forms are Medication Reconciliation Form, Thank You Letter, Antibiotic Education, Prescription Opioid Use. Follow up: Emergency Department; When: As needed; Reason: Worsening of condition. Follow up: Private Physician; When: 2 - 3 days; Reason: Recheck today's complaints, Continuance of care, Re-evaluation by your physician. Problem is new. Symptoms have improved. pm1 01:53 01:35 10/30/2020 01:35 Discharged to Home. Impression: Acute stress reaction; Alcohol lp1 abuse; Cannabis abuse. Condition is Stable. Discharge Instructions: Stress and Stress Management. Forms are Medication Reconciliation Form, Thank You Letter, Antibiotic Education, Prescription Opioid Use. Follow up: Emergency Department; When: As needed; Reason: Worsening of condition. Follow up: Private Physician; When: 2 - 3 days; Reason: Recheck today's complaints, Continuance of care, Re-evaluation by your physician. Problem is new. Symptoms have improved. pm1
--- NOTE | 2020-10-30 01:36 | ER ---
Nurse's Notes [facility] Estephania Name: Laly Guajardo Age: 34 yrs Sex: Female : 1985 Arrival Date: 10/29/2020 Time: 22:06 Bed 8 Private MD: Diagnosis: Acute stress reaction;Alcohol abuse;Cannabis abuse Presentation: 10/29 22:00 Chief complaint: Patient states: EMS called for patient who was agitated, reporting lp1 wanting to kill and her "auntie"; Patient crying on arrival to ED, reports "my left me for my auntie"; Cooperative with Provider; Per EMS, there was report that patient was seen attempting to climb through a window, patient unable to recall event. 22:00 Coronavirus screen: Client denies travel out of the [place] in the last 14 days. At this lp1 time, the client does not indicate any symptoms associated with coronavirus-19. Ebola Screen: No symptoms or risks identified at this time. Initial Sepsis Screen: Does the patient meet any 2 criteria? No. Patient's initial sepsis screen is negative. Does the patient have a suspected source of infection? No. Patient's initial sepsis screen is negative. Risk Assessment: Do you want to hurt yourself or someone else? Patient reports desire/thoughts of hurting themselves or someone else. Provider notified. Other: Patient reports wanting to harm her and her auntie, no concrete plan; Denies harm to self. Note Patient noted to be agitated, crying during triage. Onset of symptoms was October 29, 2020. 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 - Social history:: Patient uses street drugs, marijuana, Smoking status: Patient reports the use of cigarette tobacco products, denies chronic smoking, but will smoke occasionally. Screenin:57 Abuse screen: Denies threats or abuse. Denies injuries from another. Nutritional lp1 screening: No deficits noted. Tuberculosis screening: No symptoms or risk factors identified. Fall Risk None identified. Assessment: 22:30 General: Appears in no apparent distress. Behavior is restless. Pain: Denies pain. lp1 Neuro: Level of Consciousness is awake, alert, obeys commands, Oriented to person, place, situation, Speech is normal, Intact. Cardiovascular: Patient's skin is warm and dry. Respiratory: Airway is patent Respiratory effort is even, unlabored. GI: Abdomen is non-distended. : No signs and/or symptoms were reported regarding the genitourinary system. EENT: No signs and/or symptoms were reported regarding the EENT system. Derm: Skin is intact, Skin is dry, Skin is normal. Musculoskeletal: No deficits noted. 10/30 00:59 Reassessment: Patient talking with [facility] via I[facility]. lp1 01:40 Reassessment: Patient appears in no apparent distress at this time. Patient is alert, lp1 oriented x 3, equal unlabored respirations, skin warm/dry/pink. Neuro: Gait is steady. Derm: Skin is intact, Skin is dry, Skin is normal. Psych: 10/29 22:30 Subjective: Patient's mood is Appropriate Delusions are denied, Hallucinations are lp1 denied Having thoughts of Patient reports on reassessment that she does not want to harm herself or anyone else, just wants to go see her grandfather and "get away from the stress". Objective: Patient is cooperative, Speech is normal, Affect is appropriate. Interventions: Searched person for dangerous items. Suicide Risk Assessment: Sad Person Scale: Sex of patient: Female: Score 0 points. Age of patient: Score 0 point if patient falls outside of specified age parameters. Depression: Score 1 point if signs of depression are present. Previous Attempt: Score 0 point if patient has not previously attempted suicide. Substance Abuse: Score 1 point if patient abuses alcohol or drugs. Rational Thinking: Score 1 point if patient is lacking rational thinking. Social Support: Score 1 point if social support is lacking and/or unavailable. Organized Plan: Score 0 if patient did not have an organized plan in place. Relationship: Score 1 point if patient is , , , or for a single male Chronic Sickness: Score 0 point if patient does not have a chronic illness, debilitating, or severe disorder. TOTAL POINTS: If total points are 5-6, proposed clinical action is to strongly consider hospitalization, depending upon confidence in the follow-up arrangement. Implement suicide precautions. Safety Checks: Door is open. No visitors are present at this time. 22:30 Patient uses marijuana daily. lp1 Vital Signs: 22:18 BP 112 / 81 LA Supine (auto/reg); Pulse 88 MON; Resp 18 S; Temp 98.2(TE); Pulse Ox 100% lp1 on R/A; Weight 92.99 kg (R); Height 5 ft. 2 in. (157.48 cm) (R); 23:16 BP 125 / 80; Pulse 70; Resp 18; Pulse Ox 98% on R/A; lp1 10/30 00:30 BP 99 / 50; Pulse 70; Resp 18; Pulse Ox 96% on R/A; lp1 12 22:18 Body Mass Index 37.49 (92.99 kg, 157.48 cm) lp1 ED Course: 10/29 22:06 Patient arrived in ED. am2 22:15 Sandeep Antunez NP is PHCP. pm1 22:15 Tigre Munguia MD is Attending Physician. pm1 22:27 Loraine Rajan, MARVIN is Primary Nurse. lp1 22:45 Inserted saline lock: 22 gauge in left wrist, using aseptic technique. Blood collected. ds4 22:54 Triage completed. lp1 22:54 Arm band placed on left wrist. lp1 23:04 Patient has correct armband on for positive identification. lp1 10/30 00:28 Straight cath inserted, using sterile technique, 16 Fr. Specimen obtained. lp1 00:39 Urine Dipstick--Ancillary (enter results) Sent. ds4 00:39 Urine Drug Screen Sent. ds4 01:51 No provider procedures requiring assistance completed. IV discontinued, No lp1 redness/swelling at site. Pressure dressing applied. Administered Medications: No medications were administered Outcome: 01:35 Discharge ordered by . pm1 01:52 Discharged to home ambulatory. lp1 01:52 Condition: good 01:52 Discharge instructions given to patient, Instructed on discharge instructions, follow up and referral plans. Demonstrated understanding of instructions, follow-up care. 01:53 Patient left the ED. lp1 Signatures: Loraine Rajan RN RN lp1 Bentley Ambrosio ds4 Sandeep Antunez NP VIDEO GAME ANIMATOR pm1 Christa Quintero am2 Corrections: (The following items were deleted from the chart) 10/29 22:22 22:18 BP 112 / 81 Supine Auto L Arm Regular; Pulse 88bpm; MonitorResp 18bpm; ds4 Spontaneous; Pulse Ox 100% RA; Temp 98.2F Temporal; ds4 23:01 22:18 BP 112 / 81 Supine Auto L Arm Regular; Pulse 88bpm; MonitorResp 18bpm; lp1 Spontaneous; Pulse Ox 100% RA; Temp 98.2F Temporal; 72.57 kg Reported; Height 5 ft. 2 in. Reported; BMI: 29.2; ds4
[2020-11-02 21:49] VITALS: TEMP 98.2
[2020-11-02 21:53] VITALS: BP 99/50; O2SAT 96
== END 2020-10-30 01:53 | disposition home or self-care (01) ==
LOC: ER 22:03
DX: F10.10 Alcohol abuse, uncomplicated (principal); F12.10 Cannabis abuse, uncomplicated; F41.8 Other specified anxiety disorders; I10 Essential (primary) hypertension; F17.210 Nicotine dependence, cigarettes, uncomplicated; Z88.0 Allergy status to penicillin; Z88.1 Allergy status to other antibiotic agents; Z88.8 Allergy status to other drugs, medicaments and biological substances
CPT/HCPCS: 36415; 51702; 80048; 80076; 80307; 80320; 80329; 81003; 81025; 85025; 85610; 85730; 93005; 99284

== ENCOUNTER 2020-11-26 17:59 | Emergency (ER) | payer OTHER ==
--- OUTSIDE RECORDS SUMMARY | 2020-11-26 18:01 | XMS REPORT | Continuity of Care Document ---
:1985 Author Organization [facility] t Address [address] [place] [address] Care Team Providers Name Role Phone Gale [...] Facility Department ID 2020-10-22 2020-10-22 Emergency Steve [facility] [id number] 16:02:00 20:05:00 Lakhwinder Robin [id number] Christina [id number] [place] [id number] [id number] 2019-07-29 2019-07-29 Emergency Missy [facility] [id number] 09:50:45 12:45:00 Quinton Robin [id number] [place] [id number] [place] [id number] 2019-07-29 2019-07-29 Orders Doctor ROSE [id number] 00:00:00 00:00:00 Only Unassigned, MOOK [id number] [place] [facility] [id number] 2019-07-27 2019-07-27 Telephone Christianoalireza [facility] [id number] 00:00:00 00:00:00 Kristina Loera INVOICE CODER [id number] [facility] [id number] MATERNAL [id number] & CHILD [address] [place] [address] 2019-07-11 2019-07-12 Emergency [facility] [id number] 23:24:47 01:29:00 Meredith Robin [id number] [place] [id number] [place] [id number] 2019-07-08 2019-07-08 Office [facility] [id number] 15:11:03 16:28:52 Visit Kristina Loera INVOICE CODER [id number] [facility] [id number] MATERNAL [id number] & CHILD [address] [place] [address] Results This patient has no known results.
[2020-11-26] MEDS ORDERED: ZIPRASIDONE MESYLA 20 MG/VIAL IM ONE (18:30)
[2020-11-26] MEDS ORDERED: WATER FOR INJ,STERILE 10 ML ONE (18:30)
[2020-11-26] MEDS ORDERED: LORazepam 2 MG/ML VIAL ONE (18:40)
[2020-11-26] MEDS ORDERED: DIPHENHYDRAMINE 50 MG/ML VIAL ONE (18:40)
--- NOTE | 2020-11-26 19:07 | RAD REPORT ---
EXAM DESCRIPTION: RAD - Shoulder Left 2 View - 11/26/2020 6:35 pm CLINICAL HISTORY: PAIN COMPARISON: No comparisons TECHNIQUE: Internal and external rotation views of the left shoulder were obtained. FINDINGS: There is no fracture or dislocation. AC joint is normal in appearance. No acute or suspici ous findings. IMPRESSION: Negative two-view left shoulder examination for acute findings.
[2020-11-26] MEDS ORDERED: NA CHLORIDE 0.9% 1,000 ML ONE (19:45)
--- NOTE | 2020-11-26 20:06 | RAD REPORT ---
EXAM DESCRIPTION: CT - Head Brain Wo Cont - 11/26/2020 7:58 pm CLINICAL HISTORY: MENTAL STATUS CHANGE COMPARISON: Head Brain Wo Cont dated 10/03/2020 TECHNIQUE: Axial 5 mm thick images of the head were obtained without IV contrast. All CT scans are performed using dose optimization technique as appropriate and may include automated exposure control or mA/KV adjustment according to patient size. FINDINGS: No intracranial hemorrhage, mass, edema or shift of mid-line structures. No acute infarcti on changes seen. No abnormal extra-axial fluid collections. Ventricles are normal. Mastoid air cells are clear. No air-fluid level in the paranasal sinuses. No acute bony findings. No significant change from comparison. IMPRESSION: Negative non-contrast CT head examination for acute or significant finding.
[2020-11-26 21:04] LABS: Absolute Lymphocytes (CBC) 2.6 K/uL (0.7-4.9); Basophils % 0.7 % (0-1.3); Hematocrit 39.8 % (36.0-45.0); Lymphocytes % 31.1 % (15.3-44.8); RBC Red Blood Cell Count 4.11 M/uL (3.86-4.86)
[2020-11-26 21:14] LABS: Protime INR 0.99
[2020-11-26 21:25] LABS: Urine Blood NEGATIVE (NEG); Urine Glucose NEGATIVE (NEG); Urine Protein NEGATIVE (NEG)
[2020-11-26 21:59] LABS: ALT/SGPT 37 U/L (12-78); Alkaline Phosphatase 94 U/L (45-117); BUN Blood Urea Nitrogen 6 mg/dL (7-18); Bicarbonate 24 mmol/L (21-32); Bilirubin Direct < 0.1 mg/dL (0-0.2); Bilirubin Total 0.4 mg/dL (0.2-1.0); Glucose Level 80 mg/dL (74-106); Sodium Level 141 mmol/L (136-145)
[2020-11-26 21:59] LABS: Barbiturates NEGATIVE (NEGATIVE); Benzodiazepines NEGATIVE (NEGATIVE); Cocaine NEGATIVE (NEGATIVE); METHAMPHETAM NEGATIVE (NEGATIVE); Methadone NEGATIVE (NEGATIVE); Opiates NEGATIVE (NEGATIVE); Phencyclidine NEGATIVE (NEGATIVE); THC Cannibis POSITIVE (NEGATIVE)
[2020-11-26 22:00] LABS: AST/SGOT 34 U/L (15-37); Potassium 3.3 mmol/L (3.5-5.1)
--- NOTE | 2020-11-26 23:28 | ER ---
Nurse's Notes [facility] Estephania Name: Laly Guajardo Age: 35 yrs Sex: Female : 1985 Arrival Date: 11/26/2020 Time: 18:04 Bed 16 Private MD: Diagnosis: Alcohol abuse Presentation: 11/26 18:05 Chief complaint: EMS states: A neighbor called PD because she was with her daughter and ca1 she seemed intoxicated. PD called us and they said she was responsive to sternal rub. She was awake when we got there and was combative. She threw herself down and hit her head. She has history of psychiatric issues and was brought in before for intoxication. We were not able to take her vitals cause she wouldn't stay still. Coronavirus screen: Client denies travel out of the [place] in the last 14 days. At this time, the client does not indicate any symptoms associated with coronavirus-19. Ebola Screen: Patient negative for fever greater than or equal to 101.5 degrees Fahrenheit, and additional compatible Ebola Virus Disease symptoms Patient denies exposure to infectious person. Patient denies travel to an Ebola-affected area in the 21 days before illness onset. No symptoms or risks identified at this time. Initial Sepsis Screen: Does the patient meet any 2 criteria? No. Patient's initial sepsis screen is negative. Does the patient have a suspected source of infection? No. Patient's initial sepsis screen is negative. Risk Assessment: Do you want to hurt yourself or someone else? Patient reports no desire to harm self or others. Onset of symptoms was November 26, 2020. 18:05 Method Of Arrival: EMS: [facility] ca1 18:05 Acuity: TYRA 2 ca1 Historical: - Allergies: 18:12 Amoxicillin; ca1 18:12 PENICILLINS; ca1 18:12 Reglan; ca1 18:12 Demerol; ca1 - PMHx: 18:12 Anxiety; Depression; Hypertension; Seizures; Asthma; ca1 - PSHx: 18:12 wrist surgery; foot surgery; ca1 - Immunization history:: Adult Immunizations unknown. - Social history:: Smoking status: Patient reports the use of cigarette tobacco products, Patient uses alcohol. Screenin:10 Abuse screen: Denies threats or abuse. Denies injuries from another. Nutritional ca1 screening: No deficits noted. Tuberculosis screening: No symptoms or risk factors identified. Fall Risk Fall in past 12 months (25 points). IV access (20 points). Mental Status- Overestimates/Forgets Limitations (15 pts.). Total Florence Fall Scale indicates High Risk Score (45 or more points). Fall prevention measures have been instituted. Side Rails Up X 2 Frequent Obs/Assessments Occuring As available patient and family educated on Fall Prevention Program and Strategies. Assessment: 18:10 General: Appears in no apparent distress. uncomfortable, Behavior is agitated, ca1 combative, crying, Smells of alcohol. Pain: Complains of pain in anterior aspect of left shoulder and posterior aspect of left shoulder. Neuro: Level of Consciousness is awake, alert, obeys commands, Oriented to person, place, time, situation. Cardiovascular: Heart tones S1 S2 present Capillary refill < 3 seconds Patient's skin is warm and dry. Respiratory: Airway is patent Respiratory effort is even, unlabored, Respiratory pattern is regular, symmetrical, Breath sounds are clear bilaterally. GI: Abdomen is round non-distended, Bowel sounds present X 4 quads. Abd is soft and non tender X 4 quads. : No signs and/or symptoms were reported regarding the genitourinary system. EENT: No signs and/or symptoms were reported regarding the EENT system. Derm: Skin is intact, is healthy with good turgor, Skin is pink, warm \T\ dry. Musculoskeletal: Circulation, motion, and sensation intact. Capillary refill < 3 seconds. 18:45 Reassessment: Attempted to start an IV, pt pulled hand away. ca1 19:00 Reassessment: Patient appears in no apparent distress at this time. General: Appears in ca1 no apparent distress. comfortable, Behavior is calm, drowsy, uncooperative. 20:07 Reassessment: wheeled to ct via stretcher with MARVIN Gaffney. ll2 21:00 Reassessment: Patient and/or family updated on plan of care and expected duration. Pain ll2 level reassessed. Patient is alert, oriented x 3, equal unlabored respirations, skin warm/dry/pink. 22:00 Reassessment: Patient and/or family updated on plan of care and expected duration. Pain ll2 level reassessed. Patient is alert, oriented x 3, equal unlabored respirations, skin warm/dry/pink. 23:14 Reassessment: Patient and/or family updated on plan of care and expected duration. Pain ll2 level reassessed. Patient is alert, oriented x 3, equal unlabored respirations, skin warm/dry/pink. pt and family notified of upcoming D/C. Vital Signs: 18:00 BP 136 / 115; Pulse 78; Resp 14; Pulse Ox 100% on R/A; ll2 18:05 BP 136 / 105; Pulse 78; Resp 18 S; Temp 97.2(TE); Pulse Ox 96% on R/A; Height 5 ft. ca1 (152.40 cm); ED Course: 18:04 Patient arrived in ED. ca1 18:06 Tejas Swanson PA is PHCP. cp 18:06 Gareth Boone MD is Attending Physician. cp 18:10 Patient has correct armband on for positive identification. Placed in gown. Bed in low ca1 position. Call light in reach. Side rails up X2. Pulse ox on. NIBP on. Warm blanket given. 18:11 Triage completed. ca1 18:12 Arm band placed on right wrist. ca1 18:13 Laney Simental, RN is Primary Nurse. ca1 18:35 XRAY Shoulder LEFT 2 view In Process Unspecified. EDMS 19:25 Report given to MARVIN Gaffney. ca1 19:58 CT Head Brain wo Cont In Process Unspecified. EDMS 20:55 Initial lab(s) drawn, by nm, sent to lab. lp1 21:14 Straight cath inserted, using sterile technique, 16 Fr. Specimen obtained. lp1 21:16 PHCP role handed off by Tejas Swanson PA [facility] 21:16 Corbin Palacio PA is PHCP. jmm 21:36 Urine Drug Screen Sent. ll2 Administered Medications: 18:20 Drug: Geodon 10 mg Route: IM; Site: left deltoid; ca1 19:30 Follow up: Response: No adverse reaction ll2 18:23 Drug: Ativan 1 mg Route: IM; Site: right deltoid; ca1 19:30 Follow up: Response: No adverse reaction ll2 18:26 Drug: Benadryl 25 mg Route: IM; Site: left deltoid; ca1 19:30 Follow up: Response: No adverse reaction ll2 23:13 Not Given (Physician Discretion): NS 0.9% 1000 ml IV at 1 bolus Per protocol; 1000 mL ll2 bolus Outcome: 23:27 Discharge ordered by MD. lang 23:49 Patient left the ED. ll2 Signatures: Dispatcher [employer] EDMS Corbin Palacio PA PA jmm Pena, Laura, RN RN lp1 Tejas Swanson PA PA cp Acob, Cheryl RN RN ca1 Yeimy Ayoub, MARVIN RN ll2 Corrections: (The following items were deleted from the chart) 19:31 19:00 General: Appears in no apparent distress. comfortable, Behavior is calm, drowsy, ca1 ca1 19:33 19:00 General: Appears in no apparent distress. comfortable, Behavior is calm, drowsy, ca1 ca1
--- NOTE | 2020-11-26 23:28 | EDPHYS ---
Physician Documentation [facility] Name: Laly Guajardo Age: 35 yrs Sex: Female : 1985 Arrival Date: 11/26/2020 Time: 18:04 Bed 16 Private MD: ED Physician Gareth Boone HPI: 11/26 18:12 This 35 yrs old Black Female presents to ER via EMS with complaints of Altered Mental cp Status. 18:12 The patient presents with agitation. Onset: The symptoms/episode began/occurred at an unknown time. Possible causes: unknown. 18:12 Associated signs and symptoms: Pertinent positives: combativeness, left shoulder pain, cp Pertinent negatives: abdominal pain, chest pain, headache, vomiting. Patient's baseline: Neuro: alert and fully oriented, Motor: no deficits, Ambulation: walks without assistance, Speech: normal, The patient has a previous history of seizure disorder. 18:12 Current symptoms: In the emergency department the patient's symptoms are unchanged from cp the initial presentation, despite EMS interventions. Historical: - Allergies: 18:12 Amoxicillin; ca1 18:12 PENICILLINS; ca1 18:12 Reglan; ca1 18:12 Demerol; ca1 - PMHx: 18:12 Anxiety; Depression; Hypertension; Seizures; Asthma; ca1 - PSHx: 18:12 wrist surgery; foot surgery; ca1 - Immunization history:: Adult Immunizations unknown. - Social history:: Smoking status: Patient reports the use of cigarette tobacco products, Patient uses alcohol. ROS: 18:15 Constitutional: Negative for fever. cp 18:15 Cardiovascular: Negative for chest pain. cp 18:15 Abdomen/GI: Negative for abdominal pain. 18:15 Neuro: Positive for altered mental status. 18:15 All other systems are negative. Exam: 18:20 Constitutional: The patient appears in no acute distress, alert, awake, cp non-diaphoretic, non-toxic, well developed, well nourished. 18:20 Head/Face: Normocephalic, atraumatic. cp 18:20 Eyes: Periorbital structures: appear normal, Pupils: equal, round, and reactive to light and accomodation, Conjunctiva: normal, no exudate, no injection, Sclera: no appreciated abnormality, Lids and lashes: appear normal, bilaterally. 18:20 ENT: External ear(s): are unremarkable, Nose: is normal, Posterior pharynx: Airway: no evidence of obstruction, patent. 18:20 Neck: C-spine: vertebral tenderness, is not appreciated, crepitus, is not appreciated, ROM/movement: nuchal rigidity, is not appreciated. 18:20 Chest/axilla: Inspection: normal, Palpation: is normal, no crepitus, no tenderness. 18:20 Cardiovascular: Rate: normal, Rhythm: regular. cp 18:20 Respiratory: the patient does not display signs of respiratory distress, Respirations: cp normal, no use of accessory muscles, no retractions, labored breathing, is not present, Breath sounds: are clear throughout, no decreased breath sounds, no stridor, no wheezing. 18:20 Abdomen/GI: Inspection: abdomen appears normal, Palpation: abdomen is soft and non-tender, in all quadrants. 18:20 Musculoskeletal/extremity: Extremities: grossly normal except: noted in the anterior aspect of left shoulder: pain, tenderness, There is no evidence of decreased ROM, deformity. 18:20 Neuro: Orientation: to person, time, Mentation: able to follow commands, Motor: moves all fours, strength is normal. 18:20 Psych: Affect is animated, Delusions/hallucinations are not present. Vital Signs: 18:00 BP 136 / 115; Pulse 78; Resp 14; Pulse Ox 100% on R/A; ll2 18:05 BP 136 / 105; Pulse 78; Resp 18 S; Temp 97.2(TE); Pulse Ox 96% on R/A; Height 5 ft. ca1 (152.40 cm); MDM: 18:11 Patient medically screened. cp 18:30 Differential Diagnosis: electrolyte abnormality, alcohol intoxication, hypoglycemia, cp intracranial bleed, overdose, seizure, volume depletion. 23:27 Data reviewed: vital signs, nurses notes. Counseling: I had a detailed discussion with precious the patient and/or guardian regarding: the historical points, exam findings, and any diagnostic results supporting the discharge/admit diagnosis, the need for outpatient follow up, to return to the emergency department if symptoms worsen or persist or if there are any questions or concerns that arise at home. 11/26 18:11 Order name: Acetaminophen; Complete Time: 22:29 cp 11/26 18:11 Order name: Basic Metabolic Panel; Complete Time: 22:29 cp 11/26 18:11 Order name: CBC with Diff; Complete Time: 21:17 cp 11/26 18:11 Order name: ETOH Level; Complete Time: 22:29 cp 11/26 18:11 Order name: Hepatic Function; Complete Time: 22:29 cp 11/26 18:11 Order name: PT-INR; Complete Time: 21:34 cp 11/26 18:11 Order name: Ptt, Activated; Complete Time: 21:34 cp 11/26 18:11 Order name: Salicylate; Complete Time: 21:34 cp 11/26 18:11 Order name: Urine Drug Screen; Complete Time: 22:29 cp 11/26 18:11 Order name: CT Head Brain wo Cont; Complete Time: 20:10 cp 11/26 20:11 Interpretation: Report reviewed. cp 11/26 18:11 Order name: XRAY Shoulder LEFT 2 view; Complete Time: 20:10 cp 11/26 20:11 Interpretation: Report reviewed. 11/26 21:23 Order name: Urine Dipstick--Ancillary (enter results); Complete Time: 21:34 sp 11/26 21:23 Order name: Test Urine - POC; Complete Time: 21:34 sp 11/26 18:11 Order name: EKG; Complete Time: 18:12 cp 11/26 18:11 Order name: EKG - Nurse/Tech; Complete Time: 21:36 cp 11/26 18:11 Order name: IV Saline Lock; Complete Time: 21:36 cp 11/26 18:11 Order name: Labs collected and sent; Complete Time: 22:18 cp 11/26 18:11 Order name: Urine Dipstick-Ancillary (obtain specimen); Complete Time: 21:36 cp 11/26 18:11 Order name: Urine Test (obtain specimen); Complete Time: 21:19 cp 11/26 18:11 Order name: Cath; Complete Time: 21:36 cp Administered Medications: 18:20 Drug: Geodon 10 mg Route: IM; Site: left deltoid; ca1 19:30 Follow up: Response: No adverse reaction ll2 18:23 Drug: Ativan 1 mg Route: IM; Site: right deltoid; ca1 19:30 Follow up: Response: No adverse reaction ll2 18:26 Drug: Benadryl 25 mg Route: IM; Site: left deltoid; ca1 19:30 Follow up: Response: No adverse reaction ll2 23:13 Not Given (Physician Discretion): NS 0.9% 1000 ml IV at 1 bolus Per protocol; 1000 mL ll2 bolus Disposition: 11/27 07:06 Co-signature as Attending Physician, Gareth Boone MD. rn Disposition: 11/26/20 23:27 Discharged to Home. Impression: Alcohol abuse. - Condition is Stable. - Discharge Instructions: Alcohol Abuse and Nutrition. - Medication Reconciliation Form, Thank You Letter, Antibiotic Education, Prescription Opioid Use form. - Follow up: Private Physician; When: 2 - 3 days; Reason: Recheck today's complaints, Continuance of care, Re-evaluation by your physician. Signatures: Dispatcher [employer] EDMS Corbin Palacio PA PA jmm Nieto, Roman, MD MD rn Page, Corey, PA PA cp Acob, Cheryl, RN RN ca1 Yeimy Ayoub RN RN ll2 Corrections: (The following items were deleted from the chart) 11/26 23:49 23:27 11/26/2020 23:27 Discharged to Home. Impression: Alcohol abuse. Condition is ll2 Stable. Forms are Medication Reconciliation Form, Thank You Letter, Antibiotic Education, Prescription Opioid Use. Follow up: Private Physician; When: 2 - 3 days; Reason: Recheck today's complaints, Continuance of care, Re-evaluation by your physician. [facility] 11/27 17:07 11/26 21:25 Test interpretation: by ED physician or midlevel provider: ECG, plain cp radiologic studies, cp
[2020-11-26 23:55] VITALS: BP 136/105; TEMP 97.2; O2SAT 96
== END 2020-11-26 23:49 | disposition home or self-care (01) ==
LOC: ER 17:59
DX: F10.10 Alcohol abuse, uncomplicated (principal); F17.210 Nicotine dependence, cigarettes, uncomplicated; F32.9 Major depressive disorder, single episode, unspecified; F41.9 Anxiety disorder, unspecified; I10 Essential (primary) hypertension; J45.909 Unspecified asthma, uncomplicated; Y90.6 Blood alcohol level of 120-199 mg/100 ml
CPT/HCPCS: 85025; 80048; 36415; 80320; 80329 ×2; 81025; 85610; 80076; 80307 ×8; 85730; 81003; 70450; 73030; 51702; 96372; 99285; J1200; J3486; J7030

== ENCOUNTER 2020-11-28 11:14 | Emergency (ER) | payer OTHER ==
--- OUTSIDE RECORDS SUMMARY | 2020-11-28 11:53 | XMS REPORT | Continuity of Care Document ---
:1985 Author Organization [facility] t Address [address] [place] [address] Care Team Providers Name Role Phone Gale [...] Facility Department ID 2020-10-22 2020-10-22 Emergency Steve [facility] [id number] 16:02:00 20:05:00 Lakhwinder Robin [id number] Christina [id number] [place] [phone] [id number] 2019-07-29 2019-07-29 Emergency Missy [facility] [id number] 09:50:45 12:45:00 Quinton Robin [id number] [place] [id number] [place] [id number] [id number] 2019-07-29 2019-07-29 Orders Doctor ROSE [id number] 00:00:00 00:00:00 Only Unassigned, MOOK [id number] [place] [facility] [id number] 2019-07-27 2019-07-27 Telephone Christianoalireza [facility] [id number] 00:00:00 00:00:00 Kristina Loera PLASTER MACHINE TENDER [id number] [facility] [id number] MATERNAL [phone] & CHILD [address] [place] [address] 2019-07-11 2019-07-12 Emergency [facility] [id number] 23:24:47 01:29:00 Meredith Robin [id number] [place] [id number] [place] [phone] [id number] 2019-07-08 2019-07-08 Office [facility] [id number] 15:11:03 16:28:52 Visit Kristina Loera PLASTER MACHINE TENDER [id number] [facility] [id number] MATERNAL [id number] & CHILD [address] [place] [address] Results This patient has no known results.
[2020-11-28 13:24] LABS: Absolute Lymphocytes (CBC) 2.9 K/uL (0.7-4.9); Hematocrit 37.1 % (36.0-45.0); Lymphocytes % 43.2 % (15.3-44.8); MPV 9.7 fL (7.6-11.3); RBC Red Blood Cell Count 3.79 M/uL (3.86-4.86)
[2020-11-28 13:30] LABS: Barbiturates NEGATIVE (NEGATIVE); Benzodiazepines NEGATIVE (NEGATIVE); Cocaine NEGATIVE (NEGATIVE); METHAMPHETAM NEGATIVE (NEGATIVE); Methadone NEGATIVE (NEGATIVE); Opiates NEGATIVE (NEGATIVE); Phencyclidine NEGATIVE (NEGATIVE); THC Cannibis POSITIVE (NEGATIVE)
[2020-11-28 13:34] LABS: BUN Blood Urea Nitrogen 14 mg/dL (7-18); Bicarbonate 28 mmol/L (21-32); Glucose Level 90 mg/dL (74-106); Potassium 3.3 mmol/L (3.5-5.1); Sodium Level 139 mmol/L (136-145)
[2020-11-28 14:41] LABS: Urine Blood NEGATIVE (NEG); Urine Glucose NEGATIVE (NEG); Urine Protein NEGATIVE (NEG); Urine Specific Gravity 1.025 (1.005-1.030)
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
--- NOTE | 2020-11-28 15:50 | EDPHYS ---
Physician Documentation [facility] Estephania Name: Laly Guajardo Age: 35 yrs Sex: Female : 1985 Arrival Date: 11/28/2020 Time: 11:22 Bed 19 Private MD: ED Physician Quinton Ho HPI: 11/28 18:15 This 35 yrs old Black Female presents to ER via EMS with complaints of Seizure. kdr 18:15 The patient presents after having a single isolated seizure, that lasted an unknown kdr period of time, the episode(s) was witnessed, by a bystander. Character of seizure(s): Loss of consciousness: the patient did not lose consciousness, Motor activity: generalized, Incontinence: none, Apnea: the patient did not experience apnea, Circulation: the patient did not experience evidence of pulse disturbance. Seizure onset: just prior to arrival, today. Context: the seizure(s) was witnessed, by a bystander, occurred Counselors office. Seizure Hx: Last seizure: The patient's last seizure "not sure". Associated injury: The patient did not suffer any apparent associated injury. EMS care: none. Current symptoms: Currently, the patient is not experiencing any symptoms. The patient has experienced similar episodes in the past, a few times. The patient has been recently seen by a physician: the patient's primary care provider. Historical: - Allergies: 11:25 Amoxicillin; ph 11:25 Demerol; ph 11:25 PENICILLINS; ph 11:25 Reglan; ph - Home Meds: 11:25 sertraline Oral [Active]; Trazodone Oral [Active]; ph - PMHx: 11:25 Anxiety; Asthma; Depression; Hypertension; Seizures; ph - PSHx: 11:25 wrist surgery; foot surgery; ph - Immunization history:: Adult Immunizations unknown. - Social history:: Smoking status: unknown. ROS: 18:15 Constitutional: Negative for fever, chills, and weight loss, Eyes: Negative for injury, kdr pain, redness, and discharge, ENT: Negative for injury, pain, and discharge, Neck: Negative for injury, pain, and swelling, Cardiovascular: Negative for chest pain, palpitations, and edema, Respiratory: Negative for shortness of breath, cough, wheezing, and pleuritic chest pain, Abdomen/GI: Negative for abdominal pain, nausea, vomiting, diarrhea, and constipation, Back: Negative for injury and pain, : Negative for injury, bleeding, discharge, and swelling, MS/Extremity: Negative for injury and deformity, Skin: Negative for injury, rash, and discoloration, Psych: Negative for depression, anxiety, suicide ideation, homicidal ideation, and hallucinations, Allergy/Immunology: Negative for hives, rash, and allergies, Endocrine: Negative for neck swelling, polydipsia, polyuria, polyphagia, and marked weight changes, Hematologic/Lymphatic: Negative for swollen nodes, abnormal bleeding, and unusual bruising. 18:15 Neuro: Positive for seizure activity. Exam: 18:15 Constitutional: This is a well developed, well nourished patient who is awake, alert, kdr and in no acute distress. Head/Face: Normocephalic, atraumatic. Eyes: Pupils equal round and reactive to light, extra-ocular motions intact. Lids and lashes normal. Conjunctiva and sclera are non-icteric and not injected. Cornea within normal limits. Periorbital areas with no swelling, redness, or edema. Neck: Trachea midline, no thyromegaly or masses palpated, and no cervical lymphadenopathy. Supple, full range of motion without nuchal rigidity, or vertebral point tenderness. No Meningismus. Chest/axilla: Normal chest wall appearance and motion. Nontender with no deformity. No lesions are appreciated. Cardiovascular: Regular rate and rhythm with a normal S1 and S2. No gallops, murmurs, or rubs. Normal PMI, no JVD. No pulse deficits. Respiratory: Lungs have equal breath sounds bilaterally, clear to auscultation and percussion. No rales, rhonchi or wheezes noted. No increased work of breathing, no retractions or nasal flaring. Abdomen/GI: Soft, non-tender, with normal bowel sounds. No distension or tympany. No guarding or rebound. No evidence of tenderness throughout. Back: No spinal tenderness. No costovertebral tenderness. Full range of motion. Skin: Warm, dry with normal turgor. Normal color with no rashes, no lesions, and no evidence of cellulitis. MS/ Extremity: Pulses equal, no cyanosis. Neurovascular intact. Full, normal range of motion. Neuro: Awake and alert, GCS 15, oriented to person, place, time, and situation. Cranial nerves II-XII grossly intact. Motor strength 5/5 in all extremities. Sensory grossly intact. Cerebellar exam normal. Normal gait. Psych: Awake, alert, with orientation to person, place and time. Behavior, mood, and affect are within normal limits. Vital Signs: 11:35 BP 168 / 89; Pulse 108; Resp 18; Pulse Ox 98% on R/A; ph 12:30 BP 150 / 79; Pulse 84; Resp 16; Pulse Ox 99% on R/A; ph 13:30 BP 148 / 77; Pulse 76; Resp 18; Pulse Ox 97% on R/A; ph 14:30 BP 143 / 79; Pulse 72; Resp 18; Pulse Ox 99% on R/A; ph 15:30 BP 140 / 76; Pulse 71; Resp 18; Temp 97.6; Pulse Ox 99% on R/A; ph MDM: 15:49 Patient medically screened. kdr 18:15 Data reviewed: vital signs, nurses notes, lab test result(s). Counseling: I had a kdr detailed discussion with the patient and/or guardian regarding: the historical points, exam findings, and any diagnostic results supporting the discharge/admit diagnosis, lab results, the need for outpatient follow up. 11/28 12:51 Order name: CBC with Diff; Complete Time: 13:31 kdr 11/28 12:51 Order name: Chem 7; Complete Time: 14:15 kdr 11/28 12:47 Order name: Diet Ada 1800 Douglas; Complete Time: 12:48 ph 11/28 12:51 Order name: Urine Drug Screen; Complete Time: 13:31 kdr 11/28 12:59 Order name: Urine Dipstick--Ancillary (enter results); Complete Time: 15:48 bd 11/28 12:59 Order name: Urine --Ancillary (enter results); Complete Time: 15:48 bd 11/28 12:51 Order name: Urine Dipstick-Ancillary (obtain specimen); Complete Time: 13:02 kdr 11/28 12:51 Order name: Urine Test (obtain specimen); Complete Time: 13:02 kdr Administered Medications: No medications were administered Disposition: 11/28/20 15:49 Discharged to Home. Impression: Epilepsy and recurrent seizures. - Condition is Stable. - Discharge Instructions: Seizure, Adult, [id number]. - Prescriptions for Seroquel 100 mg Oral tablet - take 1 tablet by ORAL route At bedtime; 5 tablet. Zoloft 50 mg Oral Tablet - take 2 tablet by ORAL route once daily In the morning; 6 tablet. - Medication Reconciliation Form, Thank You Letter form. - Follow up: Private Physician; When: 2 - 3 days; Reason: If symptoms return, Further diagnostic work-up, Recheck today's complaints, Continuance of care, Re-evaluation by your physician. - Problem is an ongoing problem. - Symptoms are unchanged. Signatures: Dispatcher [employer] EDMS Quinton Ho MD MD kdr Hall, Patricia, RN RN ph Corrections: (The following items were deleted from the chart) 16:20 15:49 11/28/2020 15:49 Discharged to Home. Impression: Epilepsy and recurrent seizures. ph Condition is Stable. Forms are Medication Reconciliation Form, Thank You Letter, Antibiotic Education, Prescription Opioid Use. Follow up: Private Physician; When: 2 - 3 days; Reason: If symptoms return, Further diagnostic work-up, Recheck today's complaints, Continuance of care, Re-evaluation by your physician. Problem is an ongoing problem. Symptoms are unchanged. kdr
[2020-11-28 16:39] VITALS: O2SAT 99
[2020-11-28 16:41] VITALS: BP 140/76; TEMP 97.6
== END 2020-11-28 16:20 | disposition home or self-care (01) ==
LOC: ER 11:14
DX: G40.909 Epilepsy, unspecified, not intractable, without status epilepticus (principal); F41.9 Anxiety disorder, unspecified; J45.909 Unspecified asthma, uncomplicated; F32.9 Major depressive disorder, single episode, unspecified; I10 Essential (primary) hypertension
CPT/HCPCS: 36415; 80048; 80307; 81003; 81025; 85025; 99284

== ENCOUNTER 2021-05-17 17:59 | Emergency (ER) | payer OTHER ==
--- OUTSIDE RECORDS SUMMARY | 2021-05-17 18:04 | XMS REPORT | Continuity of Care Document ---
:1985 Author Organization [facility] t Address [address] [place] [address] Care Team Providers Name Role Phone Celestina Brewster Attending Clinician Doctor Unassigned, Name Attending Clinician Unavailable Steve PRATERP, F Attending Clinician Missy PRATERP Attending Clinician Paula MENDEZP, C Attending Clinician Dustin Tapia DO Attending Clinician Problems This patient has no known problems. Allergies, Adverse Reactions, Alerts This patient has no known allergies or adverse reactions. Medications This patient has no known medications. Procedures This patient has no known procedures. Encounters Start End Encounter Admission Attending Care Care Encounter Source Date/Time Date/Time Type Type Clinicians Facility Department ID 2021-05-04 2021-05-04 Emergency Devora Roe [facility] [id number] 16:38:00 18:47:00 Celestina Robin [id number] Campus [id number] [place] [id number] 2021-05-04 2021-05-04 Orders Doctor ROSE [id number] 00:00:00 00:00:00 Only Unassigned, MOOK [id number] [place] [facility] [id number] 2020-10-22 2020-10-22 Emergency Steve, [facility] [id number] 16:02:00 20:05:00 Lakhwinder Robin [id number] Campus [id number] [place] [id number] 2019-07-29 2019-07-29 [facility] [id number] 09:50:45 12:45:00 Quinton Robin [id number] Campus [id number] [place] [id number] 2019-07-29 2019-07-29 Orders Doctor ROSE [id number] 00:00:00 00:00:00 Only Unassigned, MOOK [id number] [place] [id number] 2019-07-27 2019-07-27 Telephone [facility] [id number] 00:00:00 00:00:00 Kristina Loera [place] [facility] [id number] [facility] [id number] [place] [id number] & CHILD 107 [facility] 2019-07-11 2019-07-12 Emergency [facility] [id number] 23:24:47 01:29:00 Meredith Robin [id number] Campus [id number] [place] [id number] [id number] 2019-07-08 2019-07-08 Office [facility] [id number] 15:11:03 16:28:52 Visit Kristina Loera [place] [facility] [id number] [facility] [id number] [place] [id number] & CHILD 107 [facility] Results This patient has no known results.
[2021-05-17] MEDS ORDERED: METOPROLOL TARTRATE 5 MG/5 ML INJ IV ONE (19:13)
[2021-05-17 19:43] LABS: Absolute Lymphocytes (CBC) 2.8 K/uL (0.7-4.9); Basophils % 0.9 % (0-1.3); Lymphocytes % 31.8 % (15.3-44.8); MPV 9.1 fL (7.6-11.3); RBC Red Blood Cell Count 4.01 M/uL (3.86-4.86)
[2021-05-17 19:44] LABS: Protime INR 0.97
[2021-05-17 20:08] LABS: ALT/SGPT 42 U/L (12-78); AST/SGOT 27 U/L (15-37); Albumin 4.1 g/dL (3.4-5.0); Alkaline Phosphatase 82 U/L (45-117); BUN Blood Urea Nitrogen 9 mg/dL (7-18); Bicarbonate 28 mmol/L (21-32); Bilirubin Direct 0.1 mg/dL (0-0.2); Bilirubin Total 0.5 mg/dL (0.2-1.0); Glucose Level 90 mg/dL (74-106); Potassium 3.5 mmol/L (3.5-5.1); Sodium Level 137 mmol/L (136-145)
[2021-05-17 20:16] LABS: Urine Blood 3+ (Negative); Urine Glucose Negative (Negative); Urine Protein Negative (Negative); Urine Specific Gravity 1.025 (1.005-1.030); Urine pH 5.5 (5.0-7.0)
[2021-05-17 20:29] LABS: Urine Specific Gravity/Preg 1.025 (1.005-1.030)
[2021-05-17 20:32] LABS: Barbiturates NEGATIVE (NEGATIVE); Benzodiazepines NEGATIVE (NEGATIVE); Cocaine NEGATIVE (NEGATIVE); METHAMPHETAM NEGATIVE (NEGATIVE); Methadone NEGATIVE (NEGATIVE); Opiates NEGATIVE (NEGATIVE); Phencyclidine NEGATIVE (NEGATIVE); THC Cannibis NEGATIVE (NEGATIVE)
--- NOTE | 2021-05-17 20:32 | ER ---
Nurse's Notes [facility] Name: Laly Guajardo Age: 35 yrs Sex: Female : 1985 Arrival Date: 05/17/2021 Time: 18:19 Bed 13 Private MD: Diagnosis: Tremor, unspecified Presentation: 05/17 18:22 Chief complaint: EMS states: PT STATING SHE IS HAVING FREQUENT SEIZURES. PT MAINTAINS bp VOLUNTARY MUSCLE CONTROL AND SPEECH DURING SHAKING EPISODES. Coronavirus screen: At this time, the client does not indicate any symptoms associated with coronavirus-19. Ebola Screen: No symptoms or risks identified at this time. Initial Sepsis Screen: Does the patient meet any 2 criteria? No. Patient's initial sepsis screen is negative. Does the patient have a suspected source of infection? No. Patient's initial sepsis screen is negative. Risk Assessment: Do you want to hurt yourself or someone else? Patient reports no desire to harm self or others. Onset of symptoms is unknown. 18:22 Method Of Arrival: EMS: [facility] bp 18:22 Acuity: TYRA 3 bp Triage Assessment: 18:23 General: Appears in no apparent distress. comfortable, Behavior is anxious. Pain: bp Denies pain. EENT: No deficits noted. Neuro: Reports SZ-LIKE ACTIVITY. Cardiovascular: No deficits noted. Respiratory: No deficits noted. GI: No signs and/or symptoms were reported involving the gastrointestinal system. : No signs and/or symptoms were reported regarding the genitourinary system. Derm: No deficits noted. Musculoskeletal: No deficits noted. Historical: - Allergies: 18:23 Amoxicillin; bp 18:23 Demerol; bp 18:23 PENICILLINS; bp 18:23 Reglan; bp - Home Meds: 18:23 sertraline Oral [Active]; Trazodone Oral [Active]; bp - PMHx: 18:23 Anxiety; Asthma; Depression; Seizures; Hypertension; bp - Immunization history:: Adult Immunizations unknown. - Social history:: Smoking status: unknown. Screenin:26 Abuse screen: Denies threats or abuse. Nutritional screening: No deficits noted. bp Tuberculosis screening: No symptoms or risk factors identified. Fall Risk None identified. Assessment: 18:26 General: SEE TRIAGE NOTE. bp 19:15 Reassessment: Patient appears in no apparent distress at this time. Patient and/or ad5 family updated on plan of care and expected duration. Pain level reassessed. Patient is alert, oriented x 3, equal unlabored respirations, skin warm/dry/pink. Pt denies c/o at this time, given warm blanket and ice chips. Resting comfortably in stretcher, resp with ease. VSS. Will continue to monitor. 20:49 Reassessment: Patient appears in no apparent distress at this time. No changes from ad5 previously documented assessment. Patient and/or family updated on plan of care and expected duration. Pain level reassessed. Patient denies pain at this time. Vital Signs: 18:23 BP 140 / 99; Pulse 94; Resp 16; Temp 98; Pulse Ox 99% ; bp 19:30 BP 149 / 99; Pulse 83; Resp 18 S; Pulse Ox 100% on R/A; ad5 20:48 BP 152 / 94; Pulse 86; Resp 17 S; Pulse Ox 100% on R/A; ad5 ED Course: 18:19 Patient arrived in ED. bp 18:23 Triage completed. bp 18:23 Arm band placed on. bp 18:24 Patient has correct armband on for positive identification. Bed in low position. Call mh5 light in reach. Side rails up X2. Pillow given. Pulse ox on. NIBP on. 18:29 Quinton Ho MD is Attending Physician. kdr 18:47 Yahir Spangler, RN is Primary Nurse. bp 19:20 Assisted with dressing. mb4 19:30 Initial lab(s) drawn, by ky, sent to lab. mb4 19:35 Inserted saline lock: 22 gauge in left antecubital area, using aseptic technique. Blood mb4 collected. 19:37 Primary Nurse role handed off by Yahir Spangler, RN mw2 20:08 Pawan Edgar is Primary Nurse. ad5 20:31 Chaitanya Sotelo MD is Referral Physician. ma2 20:49 No provider procedures requiring assistance completed. IV discontinued, intact, ad5 bleeding controlled, No redness/swelling at site. Pressure dressing applied. Administered Medications: 20:46 Not Given (Patient Refused): Lopressor (metoprolol) 5 mg IVP once; Hold for SBP <100 or ad5 HR <60. Outcome: 20:31 Discharge ordered by . ma2 20:57 Discharged to home ambulatory, with family. ad5 20:57 Condition: stable 20:57 Discharge instructions given to patient, Instructed on discharge instructions, follow up and referral plans. Demonstrated understanding of instructions, follow-up care. 20:57 Patient left the ED. ad5 Signatures: Quinton Ho MD MD [facility] Yahir Spangler, MARVIN RN Oscar Gray MD MD ct2 [place] 2 Deepa Flores 4 Pawan Edgar ad5
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
[2021-05-17 21:05] VITALS: TEMP 98
[2021-05-17 21:07] VITALS: O2SAT 100
[2021-05-17 21:09] VITALS: BP 152/94
== END 2021-05-17 20:57 | disposition home or self-care (01) ==
LOC: ER 17:59
DX: R25.1 Tremor, unspecified (principal); F41.9 Anxiety disorder, unspecified; I10 Essential (primary) hypertension; Z88.0 Allergy status to penicillin; Z88.1 Allergy status to other antibiotic agents; Z88.5 Allergy status to narcotic agent; Z88.8 Allergy status to other drugs, medicaments and biological substances
CPT/HCPCS: 36415; 80048; 80076; 80307; 80320; 80329; 81003; 81025; 85025; 85610; 85730; 99284

== ENCOUNTER 2021-09-13 21:12 | Emergency (ER) | payer OTHER ==
[2021-09-13 22:46] LABS: Urine Blood Negative (Negative); Urine Glucose Negative (Negative); Urine Protein Negative (Negative); Urine Specific Gravity <=1.005 (1.005-1.030); Urine pH 5.5 (5.0-7.0)
[2021-09-13] MEDS ORDERED: ONDANSETRON 4 MG (ODT) TAB ONE (22:59)
[2021-09-13] MEDS ORDERED: ACETAMINOPHEN 500 MG TAB ONE (22:59)
[2021-09-13] MEDS ORDERED: BENZONATATE 100 MG CAP PO ONE (23:00)
--- NOTE | 2021-09-13 23:51 | ER ---
Nurse's Notes [facility] Name: Laly Guajardo Age: 35 yrs Sex: Female : 1985 Arrival Date: 09/13/2021 Time: 21:16 Bed Treatment Private MD: Diagnosis: Acute upper respiratory infection, unspecified Presentation: 09/13 22:03 Chief complaint: Patient states: Pt states cough/ h/a and body aches x 3 days. df1 Coronavirus screen: Vaccine status: Patient reports being unvaccinated. Client presents with at least one sign or symptom that may indicate coronavirus-19. The client reports previous COVID testing was negative. Date of collection: April 2021. Ebola Screen: Patient negative for fever greater than or equal to 101.5 degrees Fahrenheit, and additional compatible Ebola Virus Disease symptoms Patient denies exposure to infectious person. Patient denies travel to an Ebola-affected area in the 21 days before illness onset. Initial Sepsis Screen: Does the patient meet any 2 criteria? No. Patient's initial sepsis screen is negative. Does the patient have a suspected source of infection? No. Patient's initial sepsis screen is negative. Risk Assessment: Do you want to hurt yourself or someone else? Patient reports no desire to harm self or others. Onset of symptoms was September 10, 2021. 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 - Social history:: Smoking status: Patient reports the use of cigarette tobacco products, Patient uses alcohol, occasionally. street drugs, marijuana. Screenin/28 00:03 Abuse screen: Denies threats or abuse. Denies injuries from another. Nutritional ld1 screening: No deficits noted. Tuberculosis screening: No symptoms or risk factors identified. Fall Risk None identified. Assessment: 09/13 22:44 General: Appears in no apparent distress. comfortable, Behavior is calm, cooperative, ld1 appropriate for age. Pain: Denies pain. Neuro: Level of Consciousness is awake, alert, obeys commands, Oriented to person, place, time, situation. Cardiovascular: Capillary refill < 3 seconds Patient's skin is warm and dry. Cardiovascular: Reports. Respiratory: Airway is patent Respiratory effort is even, unlabored, Respiratory pattern is regular, symmetrical. Respiratory: Reports cough that is GI: Abdomen is round non-distended. : No signs and/or symptoms were reported regarding the genitourinary system. EENT: No signs and/or symptoms were reported regarding the EENT system. Derm: No signs and/or symptoms reported regarding the dermatologic system. Musculoskeletal: No signs and/or symptoms reported regarding the musculoskeletal system. 23:23 Reassessment: Patient appears in no apparent distress at this time. No changes from ld1 previously documented assessment. Patient and/or family updated on plan of care and expected duration. Pain level reassessed. Patient is alert, oriented x 3, equal unlabored respirations, skin warm/dry/pink. Vital Signs: 22:03 BP 139 / 98; Pulse 92; Resp 22; Temp 98.3; Pulse Ox 98% on R/A; Weight 104.33 kg; df1 Height 5 ft. 2 in. (157.48 cm); Pain 8/10; 22:44 BP 129 / 96; Pulse 87; Resp 20; Pulse Ox 98% on R/A; ld1 23:23 BP 122 / 89; Pulse 82; Resp 18; Pulse Ox 97% on R/A; ld1 22:03 Body Mass Index 42.07 (104.33 kg, 157.48 cm) df1 ED Course: 21:16 Patient arrived in ED. wm 22:07 Triage completed. df1 22:14 Tejas Swanson PA is PHCP. cp 22:14 Kendall Gregory MD is Attending Physician. cp 22:30 Beth Madison, MARVIN is Primary Nurse. ld1 22:40 Influenza Screen (a \T\ B) Sent. ld1 22:40 Strep Sent. ld1 09/14 00:03 No provider procedures requiring assistance completed. Patient did not have IV access ld1 during this emergency room visit. 00:03 Arm band placed on right wrist. ld1 Administered Medications: 09/13 22:40 Drug: Tylenol 1000 mg Route: PO; ld1 22:40 Follow up: Response: No adverse reaction ld1 22:40 Drug: Zofran (Ondansetron) 4 mg Route: PO; ld1 22:40 Follow up: Response: No adverse reaction ld1 22:40 Drug: Tessalon Perle (benzonatate) 200 mg Route: PO; ld1 22:40 Follow up: Response: No adverse reaction ld1 Outcome: 23:50 Discharge ordered by MD. downing 09/14 00:02 Discharged to home ambulatory. ld1 Condition: stable Discharge instructions given to patient, Instructed on discharge instructions, follow up and referral plans. medication usage, Demonstrated understanding of instructions, follow-up care, medications, Prescriptions given X 2. 00:03 Patient left the ED. ld1 Signatures: Tejas Swanson PA PA cp Beth Madison RN RN ld1 Zee Sigala Dawn df1 Corrections: (The following items were deleted from the chart) 09/13 22:42 22:40 CORONAVIRUS+[email or web address].RODRIGO drawn and sent. ld1 EDMS
--- NOTE | 2021-09-13 23:51 | EDPHYS ---
Physician Documentation [facility] Name: Laly Gujaardo Age: 35 yrs Sex: Female : 1985 Arrival Date: 09/13/2021 Time: 21:16 Bed Treatment Private MD: ED Physician Kendall Gregory HPI: 09/13 22:30 This 35 yrs old Black Female presents to ER via Ambulatory with complaints of S/S of cp Covid. 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 - Social history:: Smoking status: Patient reports the use of cigarette tobacco products, Patient uses alcohol, occasionally. street drugs, marijuana. ROS: 22:35 Constitutional: Positive for body aches, chills, Negative for fever, poor PO intake. cp 22:35 Eyes: Negative for injury, pain, redness, and discharge. cp 22:35 ENT: Positive for sore throat, Negative for drainage from ear(s), ear pain, difficulty swallowing, difficulty handling secretions. 22:35 Neck: Negative for pain with movement, pain at rest. 22:35 Cardiovascular: Negative for chest pain, palpitations. 22:35 Respiratory: Positive for cough, Negative for wheezing. 22:35 Abdomen/GI: Positive for nausea, Negative for vomiting, diarrhea, constipation. 22:35 Neuro: Positive for headache, Negative for altered mental status, weakness. 22:35 All other systems are negative. Exam: 22:40 Constitutional: The patient appears in no acute distress, alert, awake, non-toxic, well cp developed, well nourished, obese. 22:40 Head/Face: Normocephalic, atraumatic. cp 22:40 Eyes: Periorbital structures: appear normal, Conjunctiva: normal, no exudate, no injection, Sclera: no appreciated abnormality, Lids and lashes: appear normal, bilaterally. 22:40 ENT: External ear(s): are unremarkable, Nose: is normal, Mouth: Lips: moist, Oral mucosa: moist, Posterior pharynx: Airway: no evidence of obstruction, patent, Tonsils: no enlargement, no exudate, Uvula: midline, erythema, that is mild, exudate, is not appreciated. 22:40 Neck: ROM/movement: is normal, is supple, without pain, no range of motions limitations, no meningismus, Lymph nodes: no appreciated lymphadenopathy. 22:40 Chest/axilla: Inspection: normal. 22:40 Cardiovascular: Rate: normal. 22:40 Respiratory: the patient does not display signs of respiratory distress, Respirations: normal, no use of accessory muscles, no retractions, labored breathing, is not present, Breath sounds: decreased breath sounds, are not appreciated, stridor, is not appreciated, + upper airway congestion. wheezing: is not appreciated. 22:40 Abdomen/GI: Exam negative for discomfort, distension, guarding, Inspection: abdomen appears normal. Vital Signs: 22:03 BP 139 / 98; Pulse 92; Resp 22; Temp 98.3; Pulse Ox 98% on R/A; Weight 104.33 kg; df1 Height 5 ft. 2 in. (157.48 cm); Pain 8/10; 22:44 BP 129 / 96; Pulse 87; Resp 20; Pulse Ox 98% on R/A; ld1 23:23 BP 122 / 89; Pulse 82; Resp 18; Pulse Ox 97% on R/A; ld1 22:03 Body Mass Index 42.07 (104.33 kg, 157.48 cm) df1 MDM: 22:44 Patient medically screened. cp 23:50 Data reviewed: vital signs, nurses notes, lab test result(s), and as a result, I will cp discharge patient. 23:50 Counseling: I had a detailed discussion with the patient and/or guardian regarding: the cp historical points, exam findings, and any diagnostic results supporting the discharge/admit diagnosis, lab results, to return to the emergency department if symptoms worsen or persist or if there are any questions or concerns that arise at home. 09/13 22:23 Order name: Strep; Complete Time: 23:48 cp 09/13 22:23 Order name: Influenza Screen (a \T\ B); Complete Time: 23:48 cp 09/13 22:42 Order name: SARS-COV-2 RT PCR; Complete Time: 23:48 EDMS 09/13 22:45 Order name: Urine Dipstick-Ancillary; Complete Time: 23:48 EDMS 09/13 23:22 Order name: Throat Culture EDMS 09/13 22:24 Order name: Urine Dipstick-Ancillary (obtain specimen); Complete Time: 22:44 cp 09/13 22:24 Order name: Urine Test (obtain specimen); Complete Time: 22:44 cp Administered Medications: 22:40 Drug: Tylenol 1000 mg Route: PO; ld1 22:40 Follow up: Response: No adverse reaction ld1 22:40 Drug: Zofran (Ondansetron) 4 mg Route: PO; ld1 22:40 Follow up: Response: No adverse reaction ld1 22:40 Drug: Tessalon Perle (benzonatate) 200 mg Route: PO; ld1 22:40 Follow up: Response: No adverse reaction ld1 Disposition: 09/14 06:19 Co-signature as Attending Physician, Kendall Gregory MD. pkl Disposition Summary: 09/13/21 23:50 Discharge Ordered Location: Home cp Problem: new cp Symptoms: have improved cp Condition: Stable cp Diagnosis - Acute upper respiratory infection, unspecified cp Followup: cp - With: Private Physician - When: 2 - 3 days - Reason: Worsening of condition Discharge Instructions: - Discharge Summary Sheet cp - Viral Respiratory Infection cp - Cool Mist Vaporizer cp Forms: - Medication Reconciliation Form cp - Thank You Letter cp - Antibiotic Education cp - Prescription Opioid Use cp Prescriptions: - albuterol sulfate 90 mcg/actuation Inhalation HFA aerosol inhaler - inhale 1 puff by INHALATION route every 4-6 hours; 1 Inhaler; Refills: 0, cp Product Selection Permitted - Tessalon Perles 100 mg Oral Capsule - take 2 capsule by ORAL route every 8 hours As needed; 30 capsule; Refills: 0, cp Product Selection Permitted Signatures: Dispatcher [employer] EDKendall Blanco MD MD pkl Tejas Swanson PA PA cp Beth Madison RN RN ld1 Rossana Vickers df1 Corrections: (The following items were deleted from the chart) 09/13 22:42 22:24 CORONAVIRUS+MRBETTY.BRZ ordered. EDMS EDMS
[2021-09-14 00:47] VITALS: TEMP 98.3
[2021-09-14 00:50] VITALS: BP 122/89; O2SAT 97
== END 2021-09-14 00:03 | disposition home or self-care (01) ==
LOC: ER 21:12
DX: J06.9 Acute upper respiratory infection, unspecified (principal); I10 Essential (primary) hypertension; F31.9 Bipolar disorder, unspecified; Z20.822 Contact with and (suspected) exposure to COVID-19; Z72.0 Tobacco use; Z88.0 Allergy status to penicillin; Z88.1 Allergy status to other antibiotic agents; Z88.5 Allergy status to narcotic agent; Z88.8 Allergy status to other drugs, medicaments and biological substances
CPT/HCPCS: 87070; 87081; 81003; 87804 ×2; 99283; U0003

== ENCOUNTER 2024-05-21 13:30 | Emergency (ER) | payer OTHER, SELFPAY ==
[2024-05-21] MEDS ORDERED: ONDANSETRON 4 MG/2 ML VIAL ONE (14:10)
[2024-05-21] MEDS ORDERED: NA CHLORIDE 0.9% 1,000 ML ONE (14:11)
[2024-05-21] MEDS ORDERED: MORPHINE 4 MG/ML SYR ONE (14:11)
[2024-05-21 14:13] LABS: Absolute Eosinophils 0.4 K/uL (0-0.5); Absolute Lymphocytes (CBC) 2.5 K/uL (0.7-4.9); Absolute Monocytes 0.5 K/uL (0.1-1.3); Absolute Neutrophil 3.9 K/uL (1.8-8.0); Basophils % 0.7 % (0-1.3); Hematocrit 35.4 % (36.0-45.0); Hemoglobin 11.5 g/dL (12.0-15.0); Lymphocytes % 33.9 % (15.3-44.8); MCH 32.9 pg (27.0-35.0); MCHC 32.3 g/dL (32.0-36.0); MCV 101.8 fL (80-100); MPV 9.1 fL (7.6-11.3); Neutrophils % 53.4 % (41.7-73.7); Platelets 276 thou/uL (152-406); RBC Red Blood Cell Count 3.48 M/uL (3.86-4.86)
[2024-05-21 14:17] LABS: Specific Gravity 1.014 (1.005-1.030)
[2024-05-21 14:25] LABS: Specific Gravity 1.014 (1.005-1.030); Sqamous Epithelial <5 /HPF (None Seen); Urine Bacteria <20 /HPF (<20); Urine Bilirubin NEGATIVE (Negative); Urine Blood 2+ (Negative); Urine Clarity Clear (Clear); Urine Color Light-Yellow (Yellow); Urine Culture Reflex Order NOT NEEDED; Urine Glucose NEGATIVE (Negative); Urine Ketones NEGATIVE (Negative); Urine Microscopic Reflex YN ORDER UMIC; Urine Mucus Slight /HPF (None Seen); Urine Nitrite NEGATIVE (Negative); Urine Protein NEGATIVE (Negative); Urine RBC <5 /HPF (None Seen); Urine Urobilinogen Normal (Normal); Urine WBC <5 /HPF (<5)
[2024-05-21 14:40] LABS: ALT/SGPT 19 U/L (13-56); Albumin 3.3 g/dL (3.4-5.0); Albumin/Globulin Ratio 1.1 (1.1-1.8); Alkaline Phosphatase 75 U/L (45-117); Anion Gap 6.4 mEq/L (5.0-15.0); BUN Blood Urea Nitrogen 12 mg/dL (7-18); Bicarbonate 26 mEq/L (21-32); Bilirubin Total 0.3 mg/dL (0.2-1.0); Glomerular Filtration Rate 93 ml/min (=/>90); Glucose Level 87 mg/dL (74-106); Lipase 41 U/L (13-75); Potassium 3.4 mEq/L (3.5-5.1); Protein, Total 6.3 g/dL (6.4-8.2); Sodium Level 141 mEq/L (136-145)
[2024-05-21 14:49] LABS: AST/SGOT < 10 U/L (15-37)
--- NOTE | 2024-05-21 15:07 | RAD REPORT ---
EXAM DESCRIPTION: CT - Head Brain Wo Cont - 05/21/2024 2:59 pm CLINICAL HISTORY: Headache;Dizziness COMPARISON: Head Brain Wo Cont dated 11/26/2020; Head Brain Wo Cont dated 10/03/2020 TECHNIQUE: All CT scans are performed using dose optimization technique as appropriate and may inclu de automated exposure control or mA/KV adjustment according to patient size. FINDINGS: No intracranial hemorrhage, hydrocephalus or extra-axial fluid collection.No areas of brai n edema or evidence of midline shift. The paranasal sinuses and mastoids are clear. The calvarium is intact. IMPRESSION: No acute intracranial abnormality.
--- NOTE | 2024-05-21 15:15 | RAD REPORT ---
EXAM DESCRIPTION: CTAbdomen Pelvis W Contrast - 05/21/2024 2:59 pm CLINICAL HISTORY: ABD PAIN COMPARISON: No comparisons TECHNIQUE: CT of the abdomen and pelvis was performed with IV contrast. All CT scans are performed using dose optimization technique as appropriate and may include automated exposure control or mA/KV adjustment according to patient size. FINDINGS: Lower chest: Right breast nodules identified. The largest measures 16 millimeters. Liver: No acute abnormality or suspicious lesions. Biliary: No biliary ductal dilatation. Cholecystectomy. Stomach: No significant focal abnormality. Duodenum: No significant focal abnormality. Pancreas: No significant abnormality. Spleen: No significant abnormality. Adrenal: No suspicious lesions. Kidney/ureter: No hydronephrosis. No renal calculi. Retroperitoneum: No retroperitoneal adenopathy. Vascular: No aneurysm. Bowel: No significant focal abnormality. Normal appendix. Peritoneum: No ascites or free air. Bladder: Grossly unremarkable. Reproductive: No adnexal masses. Bones: No acute fracture. Other: n/a IMPRESSION: No acute intra-abdominal or pelvic finding. Normal appendix. Several right breast nodules noted. Though probably fibroadenomas, consider nonemergent diagnostic ma mmography and possible ultrasound to further evaluate.
--- NOTE | 2024-05-21 15:51 | ER ---
Nurse's Notes [facility] Name: Laly Guajardo Age: 38 yrs Sex: Female : 1985 Arrival Date: 05/21/2024 Time: 13:30 Bed 19 Private MD: Diagnosis: Headache;Abdominal pain, unspecified Presentation: 05/21 13:43 Chief complaint: Patient states: SMITH, dizzy, weak, pain all over, numbness B sides ll1 [place] the park. Coronavirus screen: Client denies travel out of the [place] in the last 14 days. At this time, the client does not indicate any symptoms associated with coronavirus-19. Ebola Screen: Patient denies travel to an Ebola-affected area in the 21 days before illness onset. Initial Sepsis Screen: Does the patient meet any 2 criteria? No. Patient's initial sepsis screen is negative. Does the patient have a suspected source of infection? No. Patient's initial sepsis screen is negative. Risk Assessment: Do you want to hurt yourself or someone else? Patient reports no desire to harm self or others. Onset of symptoms was May 21, 2024. 13:43 Method Of Arrival: Ambulatory ll1 13:43 Acuity: TYRA 3 ll1 Triage Assessment: 13:44 General: Appears distressed, uncomfortable, Behavior is cooperative, appropriate for ll1 age, restless. Pain: Complains of pain in all over. Neuro: Reports headache weakness. GI: Reports nausea. Musculoskeletal: Reports pain in all over. 16:23 Headache History: The patient has had previous headaches and this one is similar to bp previous episodes. Pain: Pain currently is 2 out of 10 on a pain scale. Pain began 2-3 days ago. Also complains of no other associated symptoms. Historical: - Allergies: 13:43 Amoxicillin; ll1 13:43 Demerol; ll1 13:43 PENICILLINS; ll1 13:43 Reglan; ll1 - PMHx: 13:43 Anxiety; Asthma; Bipolar disorder; Depression; Hypertension; Seizures; ll1 - Immunization history:: Adult Immunizations up to date. - Infectious Disease History:: Denies. - Social history:: Smoking status: unknown. - Family history:: not pertinent. - Hospitalizations: : No recent hospitalization is reported. Screenin:03 [facility] ED Fall Risk Assessment (Adult) History of falling in the last 3 months, bp including since admission No falls in past 3 months (0 pts) Confusion or Disorientation No (0 pts) Intoxicated or Sedated No (0 pts) Impaired Gait No (0 pts) Mobility Assist Device Used No (0 pt) Altered Elimination No (0 pt) Score/Fall Risk Level 0 - 2 = Low Risk. Abuse screen: Denies threats or abuse. Denies injuries from another. Nutritional screening: No deficits noted. Tuberculosis screening: No symptoms or risk factors identified. Assessment: 13:45 General: Appears in no apparent distress. uncomfortable, Behavior is cooperative, bp appropriate for age, anxious. Pain: Complains of pain in top of head. Neuro: Reports headache. Cardiovascular: Rhythm is sinus rhythm. Respiratory: No deficits noted. 15:16 Reassessment: Patient and/or family updated on plan of care and expected duration. Pain ll1 level reassessed. linens changed after IV fluid leaked onto bed. Vital Signs: 13:43 BP 141 / 93; Pulse 89; Resp 17; Temp 97.2; Pulse Ox 100% on R/A; Pain 10/10; ll1 16:22 BP 131 / 97; Pulse 64; Resp 16; Pulse Ox 100% ; bp 13:43 Pain Scale: Adult ll1 [place] Coma Score: 15:49 Eye Response: spontaneous(4). Motor Response: obeys commands(6). Verbal Response: rn oriented(5). Total: 15. ED Course: 13:35 Patient arrived in ED. ra3 13:38 Gareth Boone MD is Attending Physician. rn 13:43 Arm band placed on Patient placed in an exam room, on a stretcher. ll1 13:44 Triage completed. ll1 13:54 Yahir Spangler, MARVIN is Primary Nurse. bp 14:03 Patient has correct armband on for positive identification. bp 14:03 Inserted saline lock: 22 gauge in left antecubital area, using aseptic technique. Blood bp collected. 15:01 CT Abd/Pelvis - IV Contrast Only In Process Unspecified. EDMS 15:01 CT Head Brain wo Cont In Process Unspecified. EDMS 16:22 No provider procedures requiring assistance completed. IV discontinued, intact, bp bleeding controlled, No redness/swelling at site. Pressure dressing applied. Administered Medications: 14:00 Drug: NS 0.9% IV 1000 ml IV at 1 bolus Per protocol; 1000 mL bolus Route: IV; Rate: 1 bp bolus; Site: left antecubital; 16:23 Follow up: IV Status: Completed infusion; IV Intake: 1000ml bp 14:00 Drug: Ondansetron IVP 4 mg IVP once; over 2 minutes Route: IVP; Site: left antecubital; bp 16:23 Follow up: Response: No adverse reaction bp 14:00 Drug: morphine IVP or IV 4 mg IVP once over 4 mins Route: IVP; Infused Over: 4 mins; bp Site: left antecubital; 16:23 Follow up: Response: No adverse reaction bp Intake: 16:23 IV: 1000ml; Total: 1000ml. bp Outcome: 15:50 Discharge ordered by . rn 16:22 Discharged to home ambulatory, with family, bp 16:22 Condition: stable 16:22 Discharge instructions given to patient, Instructed on discharge instructions, follow up and referral plans. Demonstrated understanding of instructions, follow-up care, 16:23 Patient left the ED. bp Signatures: Dispatcher [employer] EDMS Gareth Boone MD MD rn Peltier, Brian, RN RN Sadie Pierre RN RN [facility] Micaela Allison 3
--- NOTE | 2024-05-21 15:51 | EDPHYS ---
Physician Documentation [facility] Name[facility] Laly Guaj[facility] Age: 38 yrs Sex: Female : 1985 Arrival Date: 05/21/2024 Time: 13:30 Bed 19 Private MD: ED Physician Gareth Boone HPI: 05/21 13:49 This 38 yrs old Black Female presents to ER via Ambulatory with complaints of Headache, rn Dizziness. 13:49 The patient complains of pain to the top of head and forehead. Onset: The rn symptoms/episode began/occurred 2 week(s) ago. Severity of symptoms: At its worst the pain was moderate, in the emergency department the pain is unchanged. The symptoms are alleviated by nothing. the symptoms are aggravated by nothing. The patient has experienced similar episodes in the past. Patient reports headache, dizziness, malaise and fatigue with bodyaches for 2 weeks. No fever. No head injury. Seen at [facility] emergency room yesterday with negative blood work and reports negative CT abdomen pelvis as well as ultrasound. Diagnosed and discharged with fibroids. States symptoms are not getting better so came here for second opinion.. Historical: - Allergies: 13:43 Amoxicillin; ll1 13:43 Demerol; ll1 13:43 PENICILLINS; ll1 13:43 Reglan; ll1 - PMHx: 13:43 Anxiety; Asthma; Bipolar disorder; Depression; Hypertension; Seizures; ll1 - Immunization history:: Adult Immunizations up to date. - Infectious Disease History:: Denies. - Social history:: Smoking status: unknown. - Family history:: not pertinent. - Hospitalizations: : No recent hospitalization is reported. ROS: 13:49 Constitutional: Negative for fever, chills, and weight loss, Neck: Negative for injury, rn pain, and swelling, Cardiovascular: Negative for chest pain, palpitations, and edema, Respiratory: Negative for shortness of breath, cough, wheezing, and pleuritic chest pain, Abdomen/GI: Positive for abdominal pain with nausea Back: Negative for injury and pain, : Negative for injury, discharge, and swelling, MS/Extremity: Negative for injury and deformity, Skin: Negative for injury, rash, and discoloration, Neuro: Positive for headache and generalized weakness Exam: 13:49 Constitutional: This is a well developed, well nourished patient who is awake, alert, rn seems anxious Head/Face: Normocephalic, atraumatic. ENT: Dry mucous membranes Cardiovascular: Regular rate and rhythm. No pulse deficits. Respiratory: No increased work of breathing, no retractions or nasal flaring. Abdomen/GI: Soft, no focal abdominal tenderness. No distention. MS/ Extremity: Pulses equal, no cyanosis. Neurovascular intact. Full, normal range of motion. Equal circumference. Neuro: Awake and alert, GCS 15, oriented to person, place, time, and situation. Cranial nerves II-XII grossly intact. Motor strength 5/5 in all extremities. Sensory grossly intact. Cerebellar exam normal. Vital Signs: 13:43 BP 141 / 93; Pulse 89; Resp 17; Temp 97.2; Pulse Ox 100% on R/A; Pain 10/10; ll1 16:22 BP 131 / 97; Pulse 64; Resp 16; Pulse Ox 100% ; bp 13:43 Pain Scale: Adult ll1 [place] Coma Score: 15:49 Eye Response: spontaneous(4). Motor Response: obeys commands(6). Verbal Response: rn oriented(5). Total: 15. MDM: 13:38 Patient medically screened. rn 15:49 Differential diagnosis: hypertensive headache, intracerebral hemorrhage, migraine, rn neoplasm, tension headache, vasomotor headache. Data reviewed: vital signs, nurses notes, lab test result(s), radiologic studies, CT scan, and as a result, I will discharge patient. Counseling: I had a detailed discussion with the patient and/or guardian regarding the historical points, exam findings, and any diagnostic results supporting the discharge/admit diagnosis, lab results, radiology results, the need for outpatient follow up, to return to the emergency department if symptoms worsen or persist or if there are any questions or concerns that arise at home. Response to treatment: the patient's symptoms have markedly improved after treatment, and as a result, I will discharge patient. Special discussion: I discussed with the patient/guardian in detail that at this point there is no indication for admission to the hospital. It is understood, however, that if the symptoms persist or worsen the patient needs to return immediately for re-evaluation. Based on the history and exam findings, there is no indication for further emergent testing or inpatient evaluation. I discussed with the patient/guardian the need to see the OB Gyne specialist for further evaluation of the symptoms. 05/21 13:48 Order name: CBC with Diff; Complete Time: 14:53 rn 05/21 13:48 Order name: CMP; Complete Time: 14:53 rn 05/21 13:48 Order name: Lipase; Complete Time: 14:53 rn 05/21 13:48 Order name: Test, Urine; Complete Time: 14:53 rn 05/21 13:48 Order name: Urinalysis w/ reflexes; Complete Time: 14:53 rn 05/21 13:48 Order name: CT Abd/Pelvis - IV Contrast Only; Complete Time: 15:15 rn 05/21 13:48 Order name: CT Head Brain wo Cont; Complete Time: 15:15 rn 05/21 13:48 Order name: IV Saline Lock; Complete Time: 13:54 rn 05/21 13:48 Order name: Labs collected and sent; Complete Time: 14:03 rn Administered Medications: 14:00 Drug: NS 0.9% IV 1000 ml IV at 1 bolus Per protocol; 1000 mL bolus Route: IV; Rate: 1 bp bolus; Site: left antecubital; 16:23 Follow up: IV Status: Completed infusion; IV Intake: 1000ml bp 14:00 Drug: Ondansetron IVP 4 mg IVP once; over 2 minutes Route: IVP; Site: left antecubital; bp 16:23 Follow up: Response: No adverse reaction bp 14:00 Drug: morphine IVP or IV 4 mg IVP once over 4 mins Route: IVP; Infused Over: 4 mins; bp Site: left antecubital; 16:23 Follow up: Response: No adverse reaction bp Disposition Summary: 05/21/24 15:50 Discharge Ordered Notes: Location: Home rn Problem: new rn Symptoms: have improved rn Condition: Stable rn Diagnosis - Headache rn - Abdominal pain, unspecified rn Followup: rn - With: Private Physician - When: As needed - Reason: Recheck today's complaints, Re-evaluation by your physician Discharge Instructions: - Discharge Summary Sheet rn - Abdominal Pain, Adult rn - Uterine Fibroids rn - General Headache Without Cause rn Forms: - Medication Reconciliation Form rn - Antibiotic media intern - Prescription Opioid Use rn - Patient Portal Instructions rn - Leadership Thank You Letter rn Signatures: Dispatcher [employer] Gareth Bennett MD MD rn Peltier, Brian RN RN bp Sadie Hurtado RN RN ll1 Corrections: (The following items were deleted from the chart) 13:48 13:48 Head Brain Wo [email or web address].[email or web address] ordered. EDMS EDMS
[2024-05-21 16:38] VITALS: BP 131/97; TEMP 97.2; O2SAT 100
== END 2024-05-21 16:23 | disposition home or self-care (01) ==
LOC: ER 13:30
DX: R51.9 Headache, unspecified (principal); R10.9 Unspecified abdominal pain; R53.1 Weakness
CPT/HCPCS: 96361; 85025; 81001; 36415; 81025; 83690; 80053; 70450; 74177; 96375; 96374; 99284; Q9967; J2405; J7030